=== PATIENT | male | born 1960 | race Caucasian/White ===

== ENCOUNTER → 2019-06-29 06:56 | Outpatient (CLI) | payer OTHER, SELFPAY ==
--- NOTE | 2019-06-29 08:28 | NEURO ---
NCS and/or EMG Patient Report HPI: Patient is a 58-year-old male who presented with complaints of feeling numbness and something balled up under his toes since March. it has progressed to be almost constant feeling. Patient does not complain of back pain or back injury or being diabetic. Right leg seems to be worse than the left leg. Physical Exam: There is slightly decreased sensation to light touch under the big toes on both sides, more on the right than the left. No any other significant sensory deficits or motor weakness noted. Findings: 1. There is evidence of slight slowing of the right common peroneal motor nerve conduction velocity. 2. Rest of the nerve conduction studies are normal. 3. Normal needle examination of the right lower extremity. Impression: 1. 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 2. No any other significant neuropathy noted on examination. Recommendation: Clinical correlation and appropriate work-up is recommended.
== END ==
PROVIDERS: Family Provider Family Medicine; PCP Family Medicine; Referring Provider Family Medicine; Visit Provider Family Medicine
DX: R20.2 Paresthesia of skin (principal)
CPT/HCPCS: 95886; 95909

== ENCOUNTER → 2020-08-09 08:07 | Outpatient (CLI) | payer OTHER, SELFPAY ==
[2020-08-08 13:30] VITALS: BMI 38.1
[2020-08-09 12:27] LABS: Absolute Lymphocyte Count 1.55 X10^3/uL (0.83-4.51); Absolute Neutrophil Count 4.3 X10^3/uL (2.0-7.7); Basophil# 0.05 X10^3/uL; Basophil% 0.8 % (0-1); Eosinophil# 0.11 X10^3/uL; Eosinophils% 1.7 % (0-5); Hematocrit 43.8 % (40-54); Lymphocyte # 1.55 X10^3/ul (4.0); Lymphocyte % 23.7 % (19-41); Mean Corpuscular Hgb 27.7 pg (27.0-32.0); Mean Corpuscular Volume 86.6 fL (80-94); Mean Platelet Vol. 9.8 fl (6.2-12.0); Monocyte# 0.45 X10^3/uL; Monocyte% 6.9 % (0-10); NRBC Flagged by Analyzer 0 % (0-5); Neutrophil # 4.31 X10^3/uL (2.7-7.7); Neutrophil % 65.8 % (47-70); Platelet Count 230 K/mm3 (150-450); RBC Distribution Width CV 12.9 % (11.6-14.6); RBC Distribution Width SD 40.4 fl (35.1-43.9); Red Blood Count 5.06 M/mm3 (4.6-6.2); White Blood Count 6.5 K/mm3 (4.4-11.0)
[2020-08-09 12:44] LABS: ALB/GLOB Ratio 1.1 RATIO (0.9-2.4); AST(SGOT) 11 U/L (15-37); Alanine Aminotransfer ALT/SGPT 32 U/L (16-61); Albumin, Serum 3.9 g/dL (3.2-5.0); Alkaline Phosphatase 75 U/L (45-117); Anion Gap 5 (5-15); BUN 18 mg/dL (7-18); BUN/Creat Ratio 19.2 RATIO (10-20); Calcium,Total 8.7 mg/dL (8.5-10.1); Chloride 103 mmol/L (98-107); Cholesterol 182 mg/dL (200); Creatinine, Serum 0.94 mg/dL (0.70-1.30); EST Glomerular Filtration Rate 87 mL/min (>60); Est Glom Filt Rate - Afr Amer 106 mL/min (>60); Globulin 3.6 g/dL (2.2-4.2); Glucose 98 mg/dL (74-106); High Density Lipoprotein 32 mg/dL; PSA,Total - Annual Screen 2.57 ng/mL (0.00-4.00); Potassium 4.2 mmol/L (3.5-5.1); Protein, Total 7.5 g/dL (6.4-8.2); Sodium Level 137 mmol/L (136-145); Thyroid Stim Hormone (TSH) 1.76 uIU/mL (0.358-3.74); Triglycerides 236 mg/dL; Very Low Density Lipoprotein 47 mg/dL (5-40)
== END ==
PROVIDERS: PCP Internal Medicine; Referring Provider Internal Medicine; Visit Provider Internal Medicine
DX: I10 Essential (primary) hypertension (principal); Z13.220 Encounter for screening for lipoid disorders; Z12.5 Encounter for screening for malignant neoplasm of prostate
CPT/HCPCS: 36415; 80053; 80061; 84153; 84443; 85025; G0103

== ENCOUNTER 2021-08-05 08:04 | Outpatient (CLI) | payer OTHER, SELFPAY ==
[2021-08-05 12:45] LABS: Hemoglobin A1c 5.4 % (3.8-5.6)
[2021-08-05 12:53] LABS: AST(SGOT) 17 U/L (15-37); Alanine Aminotransfer ALT/SGPT 47 U/L (16-61); Albumin, Serum 3.8 g/dL (3.2-5.0); Alkaline Phosphatase 85 U/L (45-117); Anion Gap 11 (5-15); BUN 15 mg/dL (7-18); BUN/Creat Ratio 16.1 RATIO (10-20); Calcium,Total 8.9 mg/dL (8.5-10.1); Chloride 102 mmol/L (98-107); Cholesterol 186 mg/dL (200); Creatinine, Serum 0.93 mg/dL (0.70-1.30); EST Glomerular Filtration Rate 88 mL/min (>60); Est Glom Filt Rate - Afr Amer 106 mL/min (>60); Globulin 3.8 g/dL (2.2-4.2); Glucose 106 mg/dL (74-106); High Density Lipoprotein 31 mg/dL; Potassium 4.1 mmol/L (3.5-5.1); Protein, Total 7.6 g/dL (6.4-8.2); Sodium Level 139 mmol/L (136-145); Triglycerides 256 mg/dL; Very Low Density Lipoprotein 51 mg/dL (5-40)
[2021-08-05 12:55] LABS: Absolute Lymphocyte Count 1.44 X10^3/uL (0.83-4.51); Absolute Neutrophil Count 3.8 X10^3/uL (2.0-7.7); Basophil# 0.04 X10^3/uL; Basophil% 0.7 % (0-1); Eosinophil# 0.15 X10^3/uL; Eosinophils% 2.5 % (0-5); Hematocrit 42.1 % (40-54); Hemoglobin 13.8 g/dL (13.0-16.5); Lymphocyte # 1.44 X10^3/ul (0.83-4.51); Lymphocyte % 24.4 % (19-41); Mean Corp Hgb Conc 32.8 g/dL (32-36); Mean Corpuscular Volume 85.6 fL (80-94); Mean Platelet Vol. 9.4 fl (6.2-12.0); Monocyte# 0.42 X10^3/uL; Monocyte% 7.1 % (0-10); NRBC Flagged by Analyzer 0 % (0-5); Neutrophil % 64.3 % (47-70); Platelet Count 229 K/mm3 (150-450); RBC Distribution Width SD 40.7 fl (35.1-43.9); Red Blood Count 4.92 M/mm3 (4.6-6.2); White Blood Count 5.9 K/mm3 (4.4-11.0)
[2021-08-05 13:10] LABS: Vitamin D,25 Hydroxy 21.5 ng/mL
== END 2021-08-05 23:59 | disposition short-term general hospital (02) ==
LOC: BIMLAB 08:05
PROVIDERS: PCP Internal Medicine; Visit Provider Internal Medicine
DX: I10 Essential (primary) hypertension (principal)
CPT/HCPCS: 36415; 80053; 80061; 82306; 83036; 85025

== ENCOUNTER 2021-10-17 10:11 | Inpatient (IN) | payer OTHER, SELFPAY ==
[2021-10-17] VITALS (14 sets, daily range): BP systolic 163–198; BP diastolic 62–146; PULSE 34–66; RESP 13–18; TEMP 36.1–36.9; O2SAT 94–98; BMI 38.2; BMI 39.0
--- NOTE | 2021-10-17 10:30 | EX.ED.DYSGE1 ---
HPI History of Present Illness Chief Complaint: Shortness of Breath Informant: patient Onset/Context/Timing Onset: Days (10) Context: Gradual Onset Timing: Continuous Quality: Dyspnea with exertion Location: Chest Worsened by: Exertion, laying flat Relieved by: Rest Narrative Narrative: Patient presents with shortness of breath that has been getting worse over the past 10 days. Patient states it came on gradually and has been constant. Patient states it is worse with exertion and with laying flat. Patient states nothing seems to help it. Patient denies any chest pain. Patient denies any palpitations. Patient denies any nausea or vomiting. Patient states he did break out into a sweat at times. Patient admits to subjective chills but denies any fevers. [facility] Medical History Essential hypertension Home Medications krill oil 500 mg capsule PO 06/19/20 [History Last Taken Unknown] tumeric PO 06/19/20 [History Last Taken Unknown] losartan 50 mg tablet 50 mg PO DAILY #90 tab 08/18/21 [Rx Last Taken Unknown] Allergy/AdvReac Type Severity Reaction Status Date / Time No Known Allergies Allergy Verified 10/17/21 10:12 Family History Father Cancer Heart disease Hypertension Mother Diabetes Grandmother Breast cancer Surgical History bilateral shoulder surgery H/O lateral meniscus repair of right knee hernia Social History Smoking Status: Former smoker alcohol intake: current substance use type: does not use ROS ROS ED Constitutional Constitutional ED: Reports chills, subjective and sweats; Denies fever(s) Eyes Eyes: Reports blurry vision; Denies diplopia ENT ENT ED: Denies rhinorrhea or sore throat Cardiovascular Cardiovascular: Denies chest pain or palpitations Respiratory/Chest Respiratory/Chest: Reports dyspnea; Denies cough Gastrointestinal Gastrointestinal: Denies nausea or vomiting Genitourinary Genitourinary ED: Denies dysuria or hematuria Musculoskeletal Musculoskeletal: Denies back pain or neck pain Integumentary Denies abscess or rash Neurologic Neurologic: Denies headache(s) or weakness Allergic/Immunologic Allergic/Immunologic ED: Denies mouth swelling or urticaria EXAM Physical Exam Const Vital Signs: 10/17/21 10:12 10/17/21 10:31 10/17/21 10:42 Temperature 98.0 F Temperature Source Temporal Pulse Rate 36 L Respiratory Rate 17 Respiratory Effort Short of Breath Respiratory Pattern Tachypnea Blood Pressure 163/87 H Blood Pressure Mean 112 Pulse Ox 97 Oxygen Delivery Method Room Air Nasal Cannula Nasal Cannula Oxygen Flow Rate (L/min) 2 2 10/17/21 11:14 Temperature Temperature Source Pulse Rate 38 L Respiratory Rate 18 Respiratory Effort Respiratory Pattern Blood Pressure 198/62 H Blood Pressure Mean 107 Pulse Ox 95 Oxygen Delivery Method Nasal Cannula Oxygen Flow Rate (L/min) 2 Positive well nourished, well developed and obese General Appearance ED: well developed and NAD Nutritional Appearance: obese HEENT Reports moist mucous membranes Neck supple and no JVD Chest Wall inspection of chest normal and palpation of chest normal Resp normal respiratory effort and clear to auscultation bilaterally Cardio regular rhythm Rate: bradycardia GI normal to inspection, nondistended, normoactive bowel sounds and non-tender Palpation: soft Extremity normal to inspection General Extremety ED: Negative for edema or tenderness General Extremity: Negative for edema Neuro oriented x3, CN's II-XII intact bilaterally and no sensory deficits noted Sensorium / Orientation: alert Motor Exam: strength 5/5 throughout Psych mental status grossly normal Skin no rashes or lesions noted MDM MDM MDM Narrative Medical decision making narrative: EKG was obtained. On my interpretation, there is complete heart block with a rate of 38. QRS interval was slightly prolonged at 140. [place] was normal. There are no acute ST or T wave changes. CBC was within normal limits. PT with INR PTT were normal. Basic metabolic profile was essentially within normal limits. High-sensitivity troponin was 10. Portable 1 view chest x-ray was obtained. On my interpretation, lung jay are clear. There is normal cardiac silhouette. Bony thorax is normal. There is no acute process noted. Radiologist also interpreted the x-ray and agrees. Case was discussed with Dr. Valle from cardiology. He was in to evaluate the patient. He will obtain a stat echocardiogram here in the emergency department. He recommended admitting the patient to the hospitalist to the ICU and will plan on placing a pacemaker today. Patient and family understood and were agreeable with the plan. All questions were answered. Lab Data Attestation: I reviewed the patient's lab results. Labs: Laboratory Results - last 24 hr 10/17/21 10/17/21 10/17/21 10:29 10:29 10:29 WBC 8.2 RBC 4.65 Hgb 13.5 Hct 39.6 L MCV 85.2 MCH 29.0 MCHC 34.1 RDW Std Deviation 41.2 RDW Coeff of Brenda 13.3 Plt Count 252 MPV 9.4 Immature Gran % (Auto) 1.000 H Neut % (Auto) 68.2 Lymph % (Auto) 20.1 [place] % (Auto) 7.9 Eos % (Auto) 2.1 Baso % (Auto) 0.7 Absolute Neuts (auto) 5.6 Absolute Lymphs (auto) 1.66 Nucleated RBC % 0 PT 13.0 INR 1.0 APTT 28.2 Sodium 138 Potassium 4.6 Chloride 107 Carbon Dioxide 28.0 Anion Gap 3 L BUN 20 H Creatinine 1.08 Estim Creat Clear Calc 82.20 Est GFR (MDRD) Af Amer 89 Est GFR (MDRD) Non-Af 74 BUN/Creatinine Ratio 18.5 Glucose 106 Calcium 8.7 Troponin I High Sens 10 Radiography Chest X-Ray - ED: 1 View, Read by ED Physician, Read by Radiologist and No Acute Disease Diagnostic Testing: Clinical Impression(s) from Imaging Studies Chest X-Ray 10/17/21 10:51 IMPRESSION: Mild increased markings at the lung bases suggestive of bibasilar atelectasis and/or early infiltrate slightly worse on the right side. Electronically Signed: Calos Bajwa MD at 11:21 EDT , EKG Initial EKG: Attestation: I personally reviewed and interpreted this EKG as follows: Interpretation: No Acute Injury Pattern and AV Block (Third-degree AV block) Prior EKG tracings: available for review Prior: Changed (The third-degree heart block is new compared to previous EKG dated 11/02/2016.) Critical Care Time Critical Care Time: Yes Critical care time (excluding procedures): 30-74 minutes (33), Including time spent:, Discussing w/Patient &/or Family/Plastic Panel Installer, Discussing w/Consultants, Arranging Admission or Transfer and Performing Direct Patient Care at Bedside Discharge Plan Dx/Rx/DC Orders Clinical Impression: Complete heart block Disposition Disposition: Acute Care [facility]
--- NOTE | 2021-10-17 10:35 | EKG12_ITS ---
Test Reason : SOB Blood Pressure : / mmHG Vent. Rate : 038 BPM Atrial Rate : 040 BPM P-R Int : 000 ms QRS Dur : 140 ms QT Int : 538 ms P-R-T Axes : 036 063 054 degrees QTc Int : 427 ms Marked sinus bradycardia with A-V dissociation and Idioventricular rhythm with Premature ventricular complexes or Fusion complexes ; 3rd Degree Heart Block Left bundle branch block Abnormal ECG Confirmed by SHAHRZAD RAMIREZ, DANIEL ([id number]), desk editor BRANDI VIDAL ([id number]) on 10/21/2021 11:01:59 AM Referred By: ANTHONY/EMMY Confirmed By:DANIEL MARKHAM MD
[2021-10-17] MEDS: Aspirin 81 MG TAB.CHEW 324 MG PO (10:44)
[2021-10-17 10:51] LABS: Absolute Lymphocyte Count 1.66 X10^3/uL (0.83-4.51); Absolute Neutrophil Count 5.6 X10^3/uL (2.0-7.7); Basophil# 0.06 X10^3/uL; Basophil% 0.7 % (0-1); Eosinophil# 0.17 X10^3/uL; Eosinophils% 2.1 % (0-5); Hematocrit 39.6 % (40-54); Hemoglobin 13.5 g/dL (13.0-16.5); Lymphocyte # 1.66 X10^3/ul (0.83-4.51); Lymphocyte % 20.1 % (19-41); Mean Corp Hgb Conc 34.1 g/dL (32-36); Mean Corpuscular Volume 85.2 fL (80-94); Mean Platelet Vol. 9.4 fl (6.2-12.0); Monocyte# 0.65 X10^3/uL; Monocyte% 7.9 % (0-10); NRBC Flagged by Analyzer 0 % (0-5); Neutrophil # 5.62 X10^3/uL (2.7-7.7); Neutrophil % 68.2 % (47-70); Platelet Count 252 K/mm3 (150-450); RBC Distribution Width CV 13.3 % (11.6-14.6); RBC Distribution Width SD 41.2 fl (35.1-43.9); Red Blood Count 4.65 M/mm3 (4.6-6.2); White Blood Count 8.2 K/mm3 (4.4-11.0)
--- NOTE | 2021-10-17 10:51 | RAD_ITS ---
STUDY: X-RAY CHEST REASON FOR EXAM: Male, 60 years old. 10 day history of increasing shortness of breath and insomnia. TECHNIQUE: Single AP portable view of the chest. COMPARISON: None. FINDINGS: EKG electrodes are seen. Mild increased markings at the lung bases suggestive of either atelectasis and/or early bibasilar infiltrates slightly more prominent on the right side. There is no demonstrated pleural abnormality. Normal size heart. Normal mediastinum and brenda. Normal visualized pulmonary arteries. Normal visualized aortic arch and descending thoracic aorta. Normal visualized thoracic spine. Normal visualized ribs, clavicles, and shoulders. There is no demonstrated abnormality of the visualized soft tissue structures of the upper abdomen. RAD/Chest 1 View (Portable) IMPRESSION: Mild increased markings at the lung bases suggestive of bibasilar atelectasis and/or early infiltrate slightly worse on the right side. Electronically Signed: Calos Bajwa MD at 11:21 EDT ,
[2021-10-17 11:04] LABS: Partial Thromboplast Time 28.2 Seconds (24.1-36.2)
[2021-10-17 11:10] LABS: Anion Gap 3 (5-15); BUN 20 mg/dL (7-18); BUN/Creat Ratio 18.5 RATIO (10-20); Calcium,Total 8.7 mg/dL (8.5-10.1); Chloride 107 mmol/L (98-107); Creatinine, Serum 1.08 mg/dL (0.70-1.30); EST Glomerular Filtration Rate 74 mL/min (>60); Est Glom Filt Rate - Afr Amer 89 mL/min (>60); Glucose 106 mg/dL (74-106); Potassium 4.6 mmol/L (3.5-5.1); Sodium Level 138 mmol/L (136-145); Troponin-I HS 10 pg/mL (3.0-78.0)
--- NOTE | 2021-10-17 11:30 | ECHOCS_ITS ---
Reason For Study: Arrhythmia, complete heart block Procedure This was a 2D Doppler, Color Flow transthoracic echocardiogram. The study was technically difficult. Exam performed portable in ED. Left Ventricle Normal LV size. Left ventricular systolic function is normal. The estimated ejection fraction is 55 %. Stage 2 diastolic dysfunction. No regional wall motion abnormalities noted. Right Ventricle Normal RV size. Normal systolic function. Atria Normal left atrium. Normal right atrium. Mitral Valve Normal mitral valve. Tricuspid Valve Normal tricuspid valve. Mild to moderate (1-2+) tricuspid valve insufficiency. Pulmonary artery systolic pressure is 44 mmHg. Aortic Valve Trisinus/trileaflet aortic valve. Pulmonic Valve Normal pulmonic valve. Great Vessels Normal aortic root. The pulmonary artery is normal size. Normal inferior vena cava. Pericardium/Pleural No pericardial effusion. Medication Diluted definity 4ml given slow IV push to enhance endocardial definition. MMode/2D Measurements & Calculations LVIDd: 5.0 cm IVSd: 1.1 cm Ao root diam: 3.6 cm LVIDs: 2.9 cm LVPWd: 1.1 cm FS: 42.4 % LAV(MOD-bp): 56.6 ml LVAd ap4: 48.7 cm2 LVAd ap2: 51.0 cm2 LAV(MOD-bp) Indexed: 22.5 ml/m2 LVLd ap4: 10.2 cm LVLd ap2: 10.5 cm LAV(MOD-sp2): 62.5 ml EDV(MOD-sp4): 192.0 ml EDV(MOD-sp2): 203.0 ml LAV(MOD-sp4): 46.0 ml EDV(sp4-el): 197.6 ml EDV(sp2-el): 210.2 ml LVAs ap4: 25.7 cm2 LVAs ap2: 24.7 cm2 LVLs ap4: 8.3 cm LVLs ap2: 8.5 cm ESV(MOD-sp4): 65.5 ml ESV(MOD-sp2): 59.1 ml ESV(sp4-el): 67.5 ml ESV(sp2-el): 61.1 ml EF(MOD-sp4): 65.9 % EF(MOD-sp2): 70.9 % EF(sp4-el): 65.8 % SV(MOD-sp4): 126.4 ml SV(MOD-sp2): 144.0 ml SV(sp4-el): 130.1 ml LA A4 area: 17.4 cm2 LA dimension(2D): 4.7 cm RA A4 area: 18.3 cm2 Doppler Measurements & Calculations MV E max cole: 130.6 cm/sec Lat Peak E' Cole: 19.3 cm/sec Med Peak E' Cole: 10.6 cm/sec MV A max cole: 93.7 cm/sec E/E' lat: 6.8 E/E' med: 12.3 MV E/A: 1.4 Ao V2 max: 166.5 cm/sec LV V1 max: 128.6 cm/sec PA V2 max: 139.8 cm/sec Ao max P.1 mmHg LV V1 max P.6 mmHg TR max cole: 313.7 cm/sec TR max P.4 mmHg ECHO/Echo Complete W/ Contrast Interpretation Summary Normal LV size. Left ventricular systolic function is normal. The estimated ejection fraction is 55 %. Stage 2 diastolic dysfunction. Pulmonary artery systolic pressure is 44 mmHg. Contrast injection was performed. Ordering Physician: Dio Saucedo Referring Physician: Anne Blackman M.D. Performed By: Sofy Vargas, LEXI, RVT
--- NOTE | 2021-10-17 11:34 | PCM.HP.STD ---
HPI - General General Date of Admission: 10/17/21 Date of Service: 10/17/21 Chief Complaint: Dyspnea, worse with exertion x 10 days HPI Narrative The patient is a 60 y/o M w/ PMHx: HTN, Obesity, Former tobacco use who presents to the [facility] ED on 10/17/21 with history of onset dyspnea, worse with any exertion including any activity in his own home with PCP office evaluation with noted bradycardia on EKG with no prior history prompting them to refer patient to the ED for evaluation. Patient without any chest pain or lightheadedness or dizziness. Work-up in the ED included T 98.7, heart rate 40, BP 176/72, respiratory rate 17, 97% on room air with most recent vital signs heart rate 38, BP 198/62, CBC with WBC 8.2, hemoglobin 13.5, platelet 250 with mild, unremarkable coags, no marked appearing BMP, CXR w/ mild increased markings at the lung bases suggestive of bibasilar atelectasis and/or early infiltrate slightly worse on the right side, EKG w/ concern for complete heart block with a heart rate of 38. ED physician did discuss case with cardiology Dr. Valle with plan stat echocardiogram in the emergency room w/ normal LV size, normal LV systolic function, EF 55%, stage II diastolic dysfunction, PASP 45 mmHg with planned pacemaker placement. In the ED patient administered ASA 324 mg po x 1. PFSH Medical History (Updated 10/17/21 @ 18:[address] Wendy Springer MD) Complete heart block Essential hypertension Former tobacco use Obesity Home Medications krill oil 500 mg capsule PO 06/19/20 [History Last Taken Unknown] tumeric PO 06/19/20 [History Last Taken Unknown] losartan 50 mg tablet 50 mg PO DAILY #90 tab 08/18/21 [Rx Last Taken Unknown] Allergy/AdvReac Type Severity Reaction Status Date / Time No Known Allergies Allergy Verified 10/17/21 10:12 Family History (Updated 10/17/21 @ 18:[address] Wendy Springer MD) Father Cancer Heart disease Hypertension Mother Diabetes Heart disease Grandmother Breast cancer Surgical History (Updated 10/17/21 @ 18:[address] Wendy Springer MD) bilateral shoulder surgery H/O lateral meniscus repair of right knee History of herniorrhaphy History of permanent cardiac pacemaker placement (10/17/21) Social History (Updated 10/17/21 @ 18:[address] Wendy Springer MD) household members: spouse Smoking Status: Former smoker how long ago did patient quit smoking: Quit cigarette tobacco 1997, prior 1 ppd since teenager. alcohol intake: current alcohol intake frequency: a few times a week substance use type: does not use ROS ROS Narrative Admission Review of Systems: CONSTITUTIONAL: No weight loss, fever, chills, + weakness or fatigue. HEENT: Eyes: No visual loss, blurred vision, double vision or yellow sclerae. Ears, Nose, Throat: No hearing loss, sneezing, congestion, runny nose or sore throat. SKIN: No rash or itching, lesions, wounds. CARDIOVASCULAR: No chest pain, chest pressure or chest discomfort, palpitations, edema, orthopnea, syncopal events. RESPIRATORY: + Shortness of breath worse with exertion, No cough or sputum, wheezing, hemoptysis. GASTROINTESTINAL: No anorexia, nausea, vomiting or diarrhea, abdominal pain, melena, BRBPR. GENITOURINARY: No dysuria, frequency, urgency or retention. NEUROLOGICAL: No headache, dizziness, syncope, paralysis, ataxia, numbness or tingling in the extremities, focal weakness, change in bowel or bladder control, seizure. MUSCULOSKELETAL: No muscle, back pain, joint pain or stiffness. HEMATOLOGIC: No anemia, bleeding or bruising. LYMPHATICS: No enlarged nodes. No history of splenectomy. PSYCHIATRIC: No history of depression or anxiety. ENDOCRINOLOGIC: No reports of sweating, cold or heat intolerance. No polyuria or polydipsia. ALLERGIES: No history of asthma, hives, eczema or rhinitis. Vital Signs Vital Signs Vital Signs: 10/17/21 10:12 10/17/21 10:31 10/17/21 10:42 Temperature 98.0 F Temperature Source Temporal Pulse Rate 36 L Respiratory Rate 17 Respiratory Effort Short of Breath Respiratory Pattern Tachypnea Blood Pressure 163/87 H Blood Pressure Mean 112 Pulse Ox 97 Oxygen Delivery Method Room Air Nasal Cannula Nasal Cannula Oxygen Flow Rate (L/min) 2 2 10/17/21 11:14 Temperature Temperature Source Pulse Rate 38 L Respiratory Rate 18 Respiratory Effort Respiratory Pattern Blood Pressure 198/62 H Blood Pressure Mean 107 Pulse Ox 95 Oxygen Delivery Method Nasal Cannula Oxygen Flow Rate (L/min) 2 Weight Weight: 289 lb 14.526 oz Body Mass Index (BMI) 38.2 Physical Exam Narrative Physical Examination: General: Awake, alert, oriented x 3 and cooperative, seated upright in ED bed in no apparent distress. Skin: Normal color, normal turgor, no icterus, no cyanosis. HEENT: AT/NC, EOMI, PERRLA, MMM, no carotid bruits or JVD noted; however, thickened neck makes examination difficult. Lungs: Diminished, distant, appropriate effort, no rales, ronchi or wheezing. Heart: Bradycardic; no gallop, rub audible. Abdomen: Soft, obese, NTTP, ND, normal BS, no HSM. Extremities: No cyanosis, clubbing, or edema. Neurological: Patient awake, alert, oriented as noted, cognitive function intact; pupils equally reactive to light and accommodation, cranial nerves II-XII grossly normal, moving all 4 extremities, no focal deficits, strength moderately global decrease secondary to acute presentation. Psychiatric: Affect appears fatigued otherwise normal, no acute evidence of depressive or anxiety feelings. Results Lab / Micro Data Result Diagrams: 10/17/21 10:10/17/21 10:29 Labs: Laboratory Results - last 24 hr 10/17/21 10:29: WBC 8.2, RBC 4.65, Hgb 13.5, Hct 39.6 L, MCV 85.2, MCH 29.0, MCHC 34.1, RDW Std Deviation 41.2, RDW Coeff of Brenda 13.3, Plt Count 252, MPV 9.4, Immature Gran % (Auto) 1.000 H, Neut % (Auto) 68.2, Lymph % (Auto) 20.1, [place] % (Auto) 7.9, Eos % (Auto) 2.1, Baso % (Auto) 0.7, Absolute Neuts (auto) 5.6, Absolute Lymphs (auto) 1.66, Nucleated RBC % 0 10/17/21 10:: PT 13.0, INR 1.0, APTT 28.2 10/17/21 10:29: Sodium 138, Potassium 4.6, Chloride 107, Carbon Dioxide 28.0, Anion Gap 3 L, BUN 20 H, Creatinine 1.08, Estim Creat Clear Calc 82.20, Est GFR (MDRD) Af Amer 89, Est GFR (MDRD) Non-Af 74, BUN/Creatinine Ratio 18.5, Glucose 106, Calcium 8.7, Troponin I High Sens 10 Radiology Impression Chest X-Ray 10/17/21 10:51 IMPRESSION: Mild increased markings at the lung bases suggestive of bibasilar atelectasis and/or early infiltrate slightly worse on the right side. Electronically Signed: Calos Bajwa MD at 11:21 EDT , Assessment & Plan Assessment/Plan (1) Complete heart block: PLAN: The patient is a 60 y/o M w/ PMHx: HTN, Obesity, Former tobacco use who presents to the [facility] ED on 10/17/21 with history of onset dyspnea, worse with any exertion including any activity in his own home with PCP office evaluation with noted bradycardia on EKG with no prior history prompting them to refer patient to the ED for evaluation. #1. Exertional dyspnea secondary to acute intermittent complete heart block: Unclear etiology for onset of incomplete heart block with no medications which the patient is on which could be responsible and no history of any coronary disease but some concern for cardiology for possible sarcoidosis versus Lyme disease w/ pending Lyme IgG w/ Blot interp/IgM Ab. From discussions with cardiology plan to transition from the ED to the cardiac catheterization lab with placement of permanent pacemaker, following if no concerning events we will plan transition to the PCU, maintain on monitor, cycle cardiac enzymes to be cautious, TSH requested, magnesium requested, plan repeat EKG in a.m., plan repeat assessment per pacer nurse 10/18/2021 and per discussion with cardiology if no concerning events would plan potential discharge to home in a.m. #2. Hypertension, uncontrolled: Patient notes that his blood pressures only been up ever since onset of his exertional dyspnea, maintain on monitor with continued elevations therefore will titrate up patient losartan and continue to monitor with further additions as needed, as needed IV hydralazine as well #3. Former tobacco use: Encourage continued tobacco cessation. #4. Obesity: Weight loss and lifestyle changes encouraged. #5. DVT prophylaxis: SCDs, hold chemoprophylaxis given planned pacemaker placement. Charges/Coding Visit Charges Inpatient E&M: 09735 Init Hosp L3
[2021-10-17 13:22] LABS: Magnesium 2.4 mg/dL (1.6-2.6); Thyroid Stim Hormone (TSH) 1.74 uIU/mL (0.358-3.74); Troponin-I HS 11 pg/mL (3.0-78.0)
--- NOTE | 2021-10-17 15:57 | CL.IE_ITS ---
Patient: MYRIAM AGUIRRE Study Date: 10/17/2021 Performing: Mikie Mendez MD : 1960 Age: 60 Gender: male PROCEDURES PERFORMED LP04-([id number])INITIAL PACER INSERT+DUAL LEADS INDICATIONS Complete heart block PROCEDURE DETAILS The patient was brought to the Catheterization Lab in the postabsorptive nonsedated state. Infor med consent was obtained prior to the procedure. Local anesthetic was given subcutaneously to the le ft upper chest area with Lidocaine 2%. Access was achieved and a guidewire was advanced into the left subclavian vein. PPM ventricular lead was inserted / positioned to right ventricular apex. PPM ventr icular lead testing performed. PPM ventricular lead testing performed. PPM atrial lead was inserted / positioned to the right atrial appendage. PPM atrial lead testing performed. The Atrial lead sutured in place with 2-0 Silk. The Ventricular PM lead sutured in place with 2-0 Silk. PPM generator was at tached to the lead(s) and inserted into the pocket. Device pocket was irrigated with antibiotic Ancef . Subcutaneous closure was completed with 3-0 Vicryl. Skin closure was completed with 4-0 Vicryl. Sam ri-strips applied to Lt chest area. The patient tolerated the procedure well. Estimated Blood Loss: < 10 mls IMPLANTED / EX-PLANTED DEVICES IMPLANTED DEVICE(S): PPM Ventricular lead - Pick Up Man: Sproom, Model # Ingevity 7842 , Serial # [id number] PPM Atrial lead - Pick Up Man: [place] [employer], Model # Ingevity 7841 , Serial # [id number] PPM Generator - Pick Up Man: Sproom, Model # [employer] L111 , Serial # [id number] DEVICE PARAMETERS ATRIAL LEAD PARAMETERS: P wave- 2.2 (mV) Current- 1.1 (mA) threshold- 0.6 (V) impedence- 546 (OHMS) VENTRICULAR LEAD PARAMETERS: R wave- 22.0 (mV) Current- 0.6 (mA) threshold- 0.4 (V) impedence- 742 (OHMS) DEVICE PARAMETERS: Mode- DDD Lower rate- 60 Upper rate- 150 CONCLUSIONS / RECOMMENDATIONS Device Conclusions: Successful implantation of a dual chamber pacemaker Device Recommendations: Follow up with Primary Care Physician PROCEDURE MEDICATIONS Fentanyl 50 mcg IV Versed 1 mg IV Versed 1 mg IV Fentanyl 50 mcg IV Versed 1 mg IV Fentanyl 25 mcg IV Oxygen: 2 L/min via nasal cannula Oxygen: 3 L/min via nasal cannula Antibiotic given in appropriate timeframe. Ancef 2 Gm IV @ 10/17/2021 13:51:04 Signed By Mikie Mendez MD On 10/17/2021 15:56:05 Mikie Mendez MD
--- NOTE | 2021-10-17 16:17 | CON.PCM.CA_ITS ---
Assessment & Plan Assessment/Plan (1) Complete heart block: PLAN: Intermittent complete heart block. The etiology of the above is not entirely clear to me. He does not appear to have coronary disease. At this point in time we will have to proceed with a permanent pacemaker implantation. He should be evaluated for sarcoid as well as Lyme disease at some point. * I did explain to him the risk benefits and alternatives and he understands and agrees to proceed. (2) Essential hypertension: PLAN: His blood pressure is not under very good control at this particular time. His losartan will be resumed and titrated up as appropriate. Thank you for allowing me to participate in the care of your patient. Please don't hesitate to call if any issues arise. HPI Consult Data Date of Consult: 10/17/21 HPI Narrative HPI Narrative: MYRIAM AGUIRRE, is a 60 M who presents to the [facility] ED on 10/17/21 with history of onset dyspnea, worse with any exertion including any activity in his own home with PCP office evaluation with noted bradycardia on EKG with no prior history prompting them to refer patient to the ED for evaluation. Patient without any chest pain or lightheadedness or dizziness. Patient was recently in [place] and returned. He denies any chest pain is had no presyncopal episodes, and he cannot remember being bitten by any ticks. He has had no neck arm or jaw discomfort to suggest angina. In the emergency room he was noted to be in an AV dissociated rhythm with a heart rate of 38 bpm. I was called by my colleagues about possibly putting in a permanent pacemaker. [facility] Medical History Complete heart block Essential hypertension Home Medications krill oil 500 mg capsule PO 06/19/20 [History Last Taken Unknown] tumeric PO 06/19/20 [History Last Taken Unknown] losartan 50 mg tablet 50 mg PO DAILY #90 tab 08/18/21 [Rx Last Taken Unknown] Allergy/AdvReac Type Severity Reaction Status Date / Time No Known Allergies Allergy Verified 10/17/21 10:12 Family History Father Cancer Heart disease Hypertension Mother Diabetes Grandmother Breast cancer Surgical History bilateral shoulder surgery H/O lateral meniscus repair of right knee History of herniorrhaphy History of permanent cardiac pacemaker placement (10/17/21) Social History Smoking Status: Former smoker alcohol intake: current substance use type: does not use ROS Constitutional Constitutional: Denies fever(s) or weight loss Eyes Eyes: Reports systems reviewed and no addt'l complaints, except as documented ENT HEENT: Reports systems reviewed and no addt'l complaints, except as documented Cardiovascular Cardiovascular: Denies chest pain at rest, chest pain with activity, dyspnea at rest, dyspnea on exertion, edema, palpitations or paroxysmal nocturnal dyspnea Respiratory/Chest Respiratory/Chest: Denies dyspnea on exertion, productive cough, shortness of breath at rest or shortness of breath with exertion Gastrointestinal Gastrointestinal: Denies change in bowel habits, nausea, vomiting or weight changes Genitourinary Genitourinary: Denies difficulty urinating Musculoskeletal Musculoskeletal: Denies joint stiffness or muscle weakness Integumentary Integumentary: Denies lesions Neurologic Neurologic: Denies dizziness or syncope Psychiatric Psychiatric: Denies anxiety Endocrine Endocrinology: Denies excessive sweating or fatigue Hematologic/Lymphatic Hematologic/Lymphatic: Denies anemia Allergic/Immunologic Allergic/Immunologic: Denies seasonal rhinorrhea Physical Exam Const alert, oriented x3 and no apparent distress General Appearance: cooperative HEENT hearing grossly normal bilaterally Head and Scalp: atraumatic Eyes EOMs intact bilaterally Neck General: normal visual inspection Chest inspection of chest normal and palpation of chest normal Resp normal respiratory effort Auscultation: clear to auscultation bilaterally Cardio regular rate, regular rhythm, S1 normal heart sound and S2 normal heart sound Jugular Venous Distention: JVD GI normal to inspection, nondistended, normoactive bowel sounds Extremity normal capillary refill and no pedal edema Peripheral Pulses: Yes pulses 2+ throughout and femoral pulses present Skin no rashes or lesions noted Neuro oriented x3 and CN's II-XII intact bilaterally Psych Appearance: grossly normal and appropriate Risk Stratification Risk Stratification Applicable: No Objective Data Vital Signs: Vital Signs Temp Pulse Resp BP Pulse Ox 98.1 F 34 L 13 189/64 H 98 10/17/21 11:45 10/17/21 13:06 10/17/21 13:06 10/17/21 13:06 10/17/21 13:06 Oxygen Flow Rate (L/min) 2 Oxygen Delivery Method Nasal Cannula Weight: 289 lb 14.526 oz Body Mass Index (BMI) 38.2 Lab / Micro Data Result Diagrams: 10/17/21 10:29 10/17/21 10:29 Labs: Laboratory Results - last 24 hr 10/17/21 10:29: WBC 8.2, RBC 4.65, Hgb 13.5, Hct 39.6 L, MCV 85.2, MCH 29.0, MCHC 34.1, RDW Std Deviation 41.2, RDW Coeff of Brenda 13.3, Plt Count 252, MPV 9.4, Immature Gran % (Auto) 1.000 H, Neut % (Auto) 68.2, Lymph % (Auto) 20.1, Sabine % (Auto) 7.9, Eos % (Auto) 2.1, Baso % (Auto) 0.7, Absolute Neuts (auto) 5.6, Absolute Lymphs (auto) 1.66, Nucleated RBC % 0 10/17/21 10:29: PT 13.0, INR 1.0, APTT 28.2 10/17/21 10:29: Sodium 138, Potassium 4.6, Chloride 107, Carbon Dioxide 28.0, Anion Gap 3 L, BUN 20 H, Creatinine 1.08, Estim Creat Clear Calc 82.20, Est GFR (MDRD) Af Amer 89, Est GFR (MDRD) Non-Af 74, BUN/Creatinine Ratio 18.5, Glucose 106, Calcium 8.7, Troponin I High Sens 10 10/17/21 12:51: Magnesium 2.4, Troponin I High Sens 11, TSH 1.74 Cardiology Labs/Tests 10/17/21 10:29: WBC 8.2, RBC 4.65, Hgb 13.5, Hct 39.6 L, MCV 85.2, MCH 29.0, MCHC 34.1, Plt Count 252, MPV 9.4, Immature Gran % (Auto) 1.000 H, Neut % (Auto) 68.2, Lymph % (Auto) 20.1, Sabine % (Auto) 7.9, Eos % (Auto) 2.1, Baso % (Auto) 0.7, Absolute Neuts (auto) 5.6, Nucleated RBC % 0 10/17/21 10:29: PT 13.0, INR 1.0, APTT 28.2 10/17/21 10:29: Sodium 138, Potassium 4.6, Chloride 107, Carbon Dioxide 28.0, Anion Gap 3 L, BUN 20 H, Creatinine 1.08, Est GFR (MDRD) Af Amer 89, Est GFR (MDRD) Non-Af 74, BUN/Creatinine Ratio 18.5, Glucose 106, Calcium 8.7 10/17/21 12:51: Magnesium 2.4 Rhythm: EKG: ECHO: Stress Test: Cardiac Cath: PCI: CT Surgery: Holter monitor: EPS: PPM: CXR: Chest CT Scan: Radiography Diagnostic Testing: Radiology Impression Chest X-Ray 10/17/21 10:51 IMPRESSION: Mild increased markings at the lung bases suggestive of bibasilar atelectasis and/or early infiltrate slightly worse on the right side. Electronically Signed: Calos Bajwa MD at 11:21 EDT , Echocardiogram 10/17/21 11:30 Interpretation Summary Normal LV size. Left ventricular systolic function is normal. The estimated ejection fraction is 55 %. Stage 2 diastolic dysfunction. Pulmonary artery systolic pressure is 44 mmHg. Contrast injection was performed. Ordering Physician: Dio Saucedo Referring Physician: Anne Blackman M.D. Performed By: Sofy Vargas, LEXI, RVT
--- NOTE | 2021-10-17 16:22 | PCM.DC ---
Documented by User: Dr. Mikie Mendez MD 10/17/21 16:23 Discharge Instructions Diet Discharge Diet: No restrictions (as you feel able. No excessive stretching. No lifting your arm over your head (keep elbow below shoulder level) until seen for your pacemaker check. Do not lift your elbow away from your side until you are seen for your first visit. Keep the arm sling on if it helps remind you not to lift your arm.) Activity May shower in (days): 3 Additional Activity Instructions:: Do not lift the left arm above the shoulder Dressing / Incision Call your doctor if your incision/area has: Continuous Slow Oozing, Sudden Increased Bleeding, Increased Pain/ Swelling, Increased Redness, Foul Smelling Discharge and Swelling at the incision site Call your doctor if you observe: Fever of 101 or Higher, Shortness of breath, Dizziness, Fainting spells, Swelling in the ankles, Chest pain, Prolonged hiccupping and Increased palpitations (irregular heartbeat) Additional Dressing/Incision Instructions:: When dressing is removed, wash and dry incision. Keep covered with a light bandage if it is rubbing against your clothing. Do not cover the incision with an airtight bandage. Change the bandage daily. Do not remove steri strips. The strips will fall off on their own. Follow Up Care Please Follow Up With: Mikie Mendez MD When: Call [phone] for follow up. Pacemaker follow-up October 28 at 11 AM Test Results: Test results from this visit will be discussed in further detail at your follow-up appointment, if applicable. Discharge Plan Admission Admit Date/Time: 10/17/21 11:39 Primary Reason for Your Visit: Intermittent complete heart block, Uncontrolled HTN Attending Provider: Wendy Springer Primary Care Provider: Anne Blackman Instructions Patient Instructions: Taking a Diuretic, Taking DAV Inhibitors, Low-Salt Choices, Low Salt Diet Dc, Hypertension Dc, Living with a Pacemaker Discharge Orders/Prescriptions Prescriptions: New losartan-hydrochlorothiazide 100-12.5 mg tablet 1 tab PO DAILY 30 Days Qty: 30 RF: 0 Continued tumeric PO RF: 0 krill oil 500 mg capsule PO RF: 0 Discontinued losartan 50 mg tablet 50 mg PO DAILY Qty: 90 RF: 1 Referrals / Follow Up: Mikie Mendez MD [STAFF PHYSICIAN] - (Pacemaker follow-up October 28.) Anne Blackman MD [Primary Care Provider] - (Follow-up within 3-5 days to review admission and have repeat BP check given medication changes as well as follow-up basic metabolic panel.) Disposition Disposition (needs filled in before D/C Order can be placed): Home, Self Care Documented by User: Dr. Wendy Springer MD 10/18/21 10:08 Discharge Instructions Diet Discharge Diet: Low fat / Low cholesterol Activity Discharge Activity: - (Activity restrictions per Cardiology as noted.) May resume sexual activity in: - (Activity restrictions per Cardiology as noted.) Dressing / Incision Call your doctor if your incision/area has: Continuous Slow Oozing, Sudden Increased Bleeding, Increased Pain/ Swelling, Increased Redness, Foul Smelling Discharge and Swelling at the incision site Call your doctor if you observe: Fever of 101 or Higher, Change in Color, Inability to urinate, Dizziness, Chest pain, Increased palpitations (irregular heartbeat), Calf discomfort and Uncontrolled pain Discharge Plan Admission Admit Date/Time: 10/17/21 11:39 Primary Reason for Your Visit: Intermittent complete heart block, Uncontrolled HTN Attending Provider: Wendy Springer Primary Care Provider: Anne Blackman Instructions Patient Instructions: Taking a Diuretic, Taking DAV Inhibitors, Low-Salt Choices, Low Salt Diet Dc, Hypertension Dc, Living with a Pacemaker Discharge Orders/Prescriptions Prescriptions: New losartan-hydrochlorothiazide 100-12.5 mg tablet 1 tab PO DAILY 30 Days Qty: 30 RF: 0 Continued tumeric PO RF: 0 krill oil 500 mg capsule PO RF: 0 Discontinued losartan 50 mg tablet 50 mg PO DAILY Qty: 90 RF: 1 Referrals / Follow Up: Mikie Mendez MD [STAFF PHYSICIAN] - (Pacemaker follow-up October 28.) Anne Blackman MD [Primary Care Provider] - (Follow-up within 3-5 days to review admission and have repeat BP check given medication changes as well as follow-up basic metabolic panel.) Disposition Disposition (needs filled in before D/C Order can be placed): Home, Self Care
--- NOTE | 2021-10-17 17:15 | CASEMGMT ---
RN CM MONOTYPE SETTER CM to room to meet with patient for initial transition planning/care coordination assessment. RN EVGENY introduced self and role at [facility].? Pt voices understanding and consents to assessment at this time.? Pt resting in bed in no distress at this time.? Pt is A/O at this time and answers all questions appropriately.?? Care providers, pharmacy, and demographics verified/updated at this time. PCP: Dr Blackman Specialists: none Preferred Pharmacy: [facility] Retail Insurance: MMO Prescription Benefit:? yes Living Will/HPOA:? Has completed both LW and HPOA, who is his , Luis A LNOK: , Luis A Living Arrangements: Lives w/ in one-story home w/basement. 2 steps to enter home. Independent. /pt share home tasks. Transportation: Pt states drives self and states no transportation concerns at this time.? also drives DME: ? Denies using any DME and denies needs.? HHC/SNF: No hx of either. No needs identified. Pt wishes to return home and states has no concerns with going home at time of discharge.? Pt states does not smoke. ETOH: He states drinks beer or mixed drinks 2-3 x's/ week. CM to follow for any discharge planning/needs.? Pt voices no concerns/needs at this time.? Advised pt to ask for CM if any questions/concerns/needs arise.? Voices understanding. PLAN: ?Home w/spousal support and discharge plans in place. Vladimir WELLER RN, CM
[2021-10-17 17:32] LABS: Troponin-I HS 40 pg/mL (3.0-78.0)
[2021-10-17] MEDS: Acetaminophen 325 MG Tablet 650 MG PO (18:25)
[2021-10-17] MEDS: Losartan Potassium 50 MG Tablet PO (20:08)
[2021-10-17] MEDS: 0.9% Normal Saline 1,000 ML 100 ML IV (20:08)
[2021-10-17] MEDS: MELATONIN 3 MG TABLET PO (22:29)
[2021-10-17] MEDS: hydrALAZINE 20 MG/ML Vial 10 MG IV (22:29)
[2021-10-18 02:49] VITALS: PULSE 68
[2021-10-18 03:15] VITALS: BP 162/79; PULSE 67; RESP 18; TEMP 36.9; O2SAT 95
--- NOTE | 2021-10-18 05:50 | RAD_ITS ---
ACR Level 3 findings have been noted. An addendum which confirms receipt of the report will follow. STUDY: X-RAY CHEST REASON FOR EXAM: Male, 60 years old. Post permanent ICD/Pacemaker -- inspiration/expiration. Arms Down. Wet read to MD TECHNIQUE: PA and lateral views of the chest. COMPARISON: October 17, 2021 chest x-ray FINDINGS: Inspiration expiration images are provided. There is a left-sided pacemaker leads overlying the right atrium and ventricle. There is no visualized pneumothorax. There is minimal lower lobe atelectasis. There is mild cardiac enlargement. Normal mediastinum and brenda. Normal visualized pulmonary arteries. Normal visualized aortic arch and descending thoracic aorta. There are diffuse degenerative changes of the visualized thoracic spine. Normal visualized ribs, clavicles, and shoulders. There is no demonstrated abnormality of the visualized soft tissue structures of the upper abdomen. RAD/Chest Insp/Exp 2 View IMPRESSION: Left-sided pacer with leads overlying the right atrium and ventricle. No visualized pneumothorax. Electronically Signed: Ana Maria Díaz MD at 8:11 EDT Reading Location ID and State: [facility] / [place] Tel , Service support ,
--- NOTE | 2021-10-18 05:55 | EKG12_ITS ---
Test Reason : POST PACER Blood Pressure : / mmHG Vent. Rate : 069 BPM Atrial Rate : 069 BPM P-R Int : 190 ms QRS Dur : 166 ms QT Int : 484 ms P-R-T Axes : 030 270 071 degrees QTc Int : 518 ms Electronic ventricular pacemaker When compared with ECG of 17-OCT-2021 10:22, MANUAL COMPARISON REQUIRED, DATA IS UNCONFIRMED Confirmed by SHAHRZAD RAMIREZ, DANIEL ([id number]), senior editor BRANDI VIDAL ([id number]) on 10/21/2021 11:14:46 AM Referred By: HOLLY Confirmed By:DANIEL MARKHAM MD
[2021-10-18] MEDS: 0.9% Normal Saline 1,000 ML 100 ML IV (06:10)
[2021-10-18 07:00] VITALS: PULSE 66
[2021-10-18 07:14] LABS: Absolute Lymphocyte Count 0.93 X10^3/uL (0.83-4.51); Absolute Neutrophil Count 7.9 X10^3/uL (2.0-7.7); Basophil# 0.04 X10^3/uL; Basophil% 0.4 % (0-1); Eosinophil# 0.08 X10^3/uL; Eosinophils% 0.8 % (0-5); Hematocrit 38.3 % (40-54); Hemoglobin 13.1 g/dL (13.0-16.5); Lymphocyte # 0.93 X10^3/ul (0.83-4.51); Lymphocyte % 9.6 % (19-41); Mean Corp Hgb Conc 34.2 g/dL (32-36); Mean Corpuscular Hgb 28.9 pg (27.0-32.0); Mean Corpuscular Volume 84.5 fL (80-94); Mean Platelet Vol. 9.2 fl (6.2-12.0); Monocyte# 0.69 X10^3/uL; Monocyte% 7.1 % (0-10); NRBC Flagged by Analyzer 0 % (0-5); Neutrophil # 7.87 X10^3/uL (2.7-7.7); Neutrophil % 81.6 % (47-70); Platelet Count 222 K/mm3 (150-450); RBC Distribution Width CV 13.2 % (11.6-14.6); RBC Distribution Width SD 41.1 fl (35.1-43.9); Red Blood Count 4.53 M/mm3 (4.6-6.2); White Blood Count 9.7 K/mm3 (4.4-11.0)
[2021-10-18 07:34] VITALS: O2SAT 95
[2021-10-18 07:40] LABS: ALB/GLOB Ratio 1.1 RATIO (0.9-2.4); AST(SGOT) 32 U/L (15-37); Alanine Aminotransfer ALT/SGPT 162 U/L (16-61); Albumin, Serum 3.6 g/dL (3.2-5.0); Alkaline Phosphatase 104 U/L (45-117); Anion Gap 6 (5-15); BUN 14 mg/dL (7-18); BUN/Creat Ratio 15.9 RATIO (10-20); Calcium,Total 8.1 mg/dL (8.5-10.1); Chloride 107 mmol/L (98-107); Creatinine, Serum 0.88 mg/dL (0.70-1.30); EST Glomerular Filtration Rate 94 mL/min (>60); Est Glom Filt Rate - Afr Amer 113 mL/min (>60); Estimated Creatinine Clearance 97.98 ml/min; Globulin 3.3 g/dL (2.2-4.2); Glucose 114 mg/dL (74-106); Protein, Total 6.9 g/dL (6.4-8.2); Sodium Level 137 mmol/L (136-145)
--- NOTE | 2021-10-18 10:08 | DS.PCM_ITS ---
Providers Date of Admission: 10/17/21 Primary Care Physician: Dr. Anne Blackman MD Reason For Visit: COMPLETE HB, DYSPNEA Diagnosis Discharge Diagnosis (1) Complete heart block: Status: Acute Code(s): I44.2 - Atrioventricular block, complete (2) Essential hypertension: Status: Chronic Code(s): I10 - Essential (primary) hypertension Medications at Discharge Home Medications krill oil 500 mg capsule PO 06/19/20 tumeric PO 06/19/20 losartan-hydrochlorothiazide 1 tab PO DAILY 30 Days #30 tab 10/18/21 Hospital Course Operations - (Pacemaker placement.) Procedures 2-D Echocardiogram and EKG Summary of Care Provided Minutes Spent on Discharge: 35 Hospital Course: Discharge Diagnoses: #1. Exertional dyspnea secondary to acute intermittent complete heart block, Unclear etiology for onset #2. Hypertension, uncontrolled #3. Former tobacco use #4. Obesity Discharge Summary: The patient is a 60 y/o M w/ PMHx: HTN, Obesity, Former tobacco use who presented to the [facility] ED on 10/17/21 with history of onset dyspnea, worse with any exertion including any activity in his own home with PCP office evaluation with noted bradycardia on EKG with no prior history prompting them to refer patient to the ED for evaluation. Unclear etiology for onset of incomplete heart block with no medications which the patient is on which could be responsible and no history of any coronary disease but some concern for cardiology for possible sarcoidosis versus Lyme disease w/ pending Lyme IgG w/ Blot interp/IgM Ab upon discharge which will need to be followed up with primary care physician. Patient with ECHO in the ED w/ normal LV size, normal LV systolic function, EF 55%, stage II diastolic dysfunction, PASP 44 mmHg with contrast injection performed. Patient transition from the ED to the cardiac catheterization lab with permanent pacemaker placement. Following patient transition to the PCU and maintained on monitor without event. Cyclic cardiac enzymes remain unremarkable. Pacemaker nurse 10/18/2021 reassessment and chest x-ray with no acute findings. TSH normal. Magnesium normal. Given patient elevated blood pressure adjustments were initially made with increase of his losartan to 100 mg however BP remained above goal therefore a low-dose of hydrochlorothiazide was also initiated. Given patient significant improvement and quickness of pacemaker implantation patient felt safe and appropriate and faster timeline expected for discharge to home. Patient discharged to home on this new regimen with requested follow-up with PCP for repeat BP check as well as basic metabolic panel. Patient cleared per cardiology and discharged home with recommended follow-up with PCP as noted in addition to cardiology for pacer recheck and reevaluation. Discharge Time: > 35 Minutes DAY OF DISCHARGE PROGRESS NOTE: Subjective: Patient without acute event overnight per self and nursing report. Patient notes dyspnea sensation has lessened following pacemaker placement. Patient notes minimal discomfort to the left upper chest. Patient denies fever, chills, nausea, emesis, abdominal pain, chest pain or dyspnea. Patient agreeable to discharge to discharge to home with plan follow-up. Patient will be discharged with follow-up with primary care physician within 3-5 days in addition to cardiology per their request. Objective: T 98.4, heart rate 67, BP 162/79, respiratory rate 18, 95% on room air. Physical Examination: General: Awake, alert, oriented x 3 and cooperative, seated upright in the PCU bed, no acute distress, notes feeling improved. Skin: Normal color, normal turgor, no icterus, no cyanosis except noted left upper chest with dressing in place status post pacemaker with no drainage. HEENT: AT/NC, EOMI, PERRLA, MMM. Lungs: Diminished, distant, appropriate effort, no rales, ronchi or wheezing. Heart: Bradycardic; no gallop, rub audible. Abdomen: Soft, obese, NTTP, ND, normal BS, no HSM. Extremities: No cyanosis, clubbing, or edema. Neurological: Patient awake, alert, oriented as noted, cognitive function intact; pupils equally reactive to light and accommodation, cranial nerves II- XII grossly normal, moving all 4 extremities, no focal deficits, strength moderately global decrease secondary to acute presentation. Psychiatric: Affect appears fatigued otherwise normal, no acute evidence of depressive or anxiety feelings. Assessment and Plan: Please see hospital summary above. Weight / BMI Weight Weight: 289 lb 0.416 oz Body Mass Index (BMI) 39.0 ABG / Lab / Microbiology Data Result Diagrams: 10/18/21 06:52 10/18/21 06:52 Laboratory: Laboratory Results - last 24 hr 10/17/21 10:29: WBC 8.2, RBC 4.65, Hgb 13.5, Hct 39.6 L, MCV 85.2, MCH 29.0, MCHC 34.1, RDW Std Deviation 41.2, RDW Coeff of Brenda 13.3, Plt Count 252, MPV 9.4, Immature Gran % (Auto) 1.000 H, Neut % (Auto) 68.2, Lymph % (Auto) 20.1, [place] % (Auto) 7.9, Eos % (Auto) 2.1, Baso % (Auto) 0.7, Absolute Neuts (auto) 5.6, Absolute Lymphs (auto) 1.66, Nucleated RBC % 0 10/17/21 10:29: PT 13.0, INR 1.0, APTT 28.2 10/17/21 10:29: Sodium 138, Potassium 4.6, Chloride 107, Carbon Dioxide 28.0, Anion Gap 3 L, BUN 20 H, Creatinine 1.08, Estim Creat Clear Calc 82.20, Est GFR (MDRD) Af Amer 89, Est GFR (MDRD) Non-Af 74, BUN/Creatinine Ratio 18.5, Glucose 106, Calcium 8.7, Troponin I High Sens 10 10/17/21 12:51: Magnesium 2.4, Troponin I High Sens 11, TSH 1.74 10/17/21 16:29: Troponin I High Sens 40 10/18/21 06:52: WBC 9.7, RBC 4.53 L, Hgb 13.1, Hct 38.3 L, MCV 84.5, MCH 28.9, MCHC 34.2, RDW Std Deviation 41.1, RDW Coeff of Brenda 13.2, Plt Count 222, MPV 9.2, Immature Gran % (Auto) 0.500, Neut % (Auto) 81.6 H, Lymph % (Auto) 9.6 L, [place] % (Auto) 7.1, Eos % (Auto) 0.8, Baso % (Auto) 0.4, Absolute Neuts (auto) 7.9 H, Absolute Lymphs (auto) 0.93, Nucleated RBC % 0 10/18/21 06:52: Sodium 137, Potassium 4.0, Chloride 107, Carbon Dioxide 24.0, Anion Gap 6, BUN 14, Creatinine 0.88, Estim Creat Clear Calc 97.98, Est GFR (MDRD) Af Amer 113, Est GFR (MDRD) Non-Af 94, BUN/Creatinine Ratio 15.9, Glucose 114 H, Calcium 8.1 L, Total Bilirubin 0.80, AST 32, ALT 162 H, Alkaline Phosphatase 104, Total Protein 6.9, Albumin 3.6, Globulin 3.3, Albumin/Globulin Ratio 1.1 Radiography Diagnostic Testing: Radiology Impression Chest X-Ray 10/17/21 10:51 IMPRESSION: Mild increased markings at the lung bases suggestive of bibasilar atelectasis and/or early infiltrate slightly worse on the right side. Electronically Signed: Calos Bajwa MD at 11:21 EDT , Echocardiogram 10/17/21 11:30 Interpretation Summary Normal LV size. Left ventricular systolic function is normal. The estimated ejection fraction is 55 %. Stage 2 diastolic dysfunction. Pulmonary artery systolic pressure is 44 mmHg. Contrast injection was performed. Ordering Physician: Dio Saucedo Referring Physician: Anne Blackman M.D. Performed By: Sofy Vargas, LEXI, RVT Chest X-Ray 10/18/21 05:50 IMPRESSION: Left-sided pacer with leads overlying the right atrium and ventricle. No visualized pneumothorax. Electronically Signed: Ana Maria Díaz MD at 8:11 EDT , ADDENDUM: 10/18/21 0924 IMPRESSION: Left-sided pacer with leads overlying the right atrium and ventricle. No visualized pneumothorax. N.B. : Devorah [id number], AA, confirmed on 10/18/2021 09:17:07 (ET) that the healthcare facility has received the radiology report. Electronically Signed: Ana Maria Díaz MD at 8:11 EDT Reading Location ID and State: Pending sale to [facility] / [place] Tel , Service support , D/C Instructions Discharge Diet: Low fat / Low cholesterol May shower in (days): 3 May resume sexual activity in: - (Activity restrictions per Cardiology as noted.) Additional Activity Instructions: Do not lift the left arm above the shoulder Call your doctor if your incision/area has: Continuous Slow Oozing, Sudden Increased Bleeding, Increased Pain/ Swelling, Increased Redness, Foul Smelling Discharge and Swelling at the incision site Call your doctor if you observe: Fever of 101 or Higher, Change in Color, Inability to urinate, Dizziness, Chest pain, Increased palpitations (irregular heartbeat), Calf discomfort and Uncontrolled pain Additional Dressing/Incision Instructions: When dressing is removed, wash and dry incision. Keep covered with a light bandage if it is rubbing against your clothing. Do not cover the incision with an airtight bandage. Change the bandage daily. Do not remove steri strips. The strips will fall off on their own. Please Follow Up With: Mikie Mendez MD When: Call [phone] for follow up. Pacemaker follow-up October 28 at 11 AM Meaningful Use Info Meaningful Use Diagnoses (Choose all that apply): None applicable Discharge Plan Admission Admit Date/Time: 10/17/21 11:39 Primary Reason for Your Visit: Intermittent complete heart block, Uncontrolled HTN Attending Provider: Wendy Springer Primary Care Provider: Anne Blackman Instructions Patient Instructions: Taking DAV Inhibitors, Living with a Pacemaker, Low-Salt Choices, Taking a Diuretic, Hypertension Dc, Low Salt Diet Dc Discharge Orders/Prescriptions Prescriptions: New losartan-hydrochlorothiazide 100-12.5 mg tablet 1 tab PO DAILY 30 Days Qty: 30 RF: 0 Continued tumeric PO RF: 0 krill oil 500 mg capsule PO RF: 0 Discontinued losartan 50 mg tablet 50 mg PO DAILY Qty: 90 RF: 1 Referrals / Follow Up: Mikie Mendez MD [STAFF PHYSICIAN] - (Pacemaker follow-up October 28 am.) Anne Blackman MD [Primary Care Provider] - (Follow-up within 3-5 days to review admission and have repeat BP check given medication changes as well as follow-up basic metabolic panel.) Disposition Disposition (needs filled in before D/C Order can be placed): Home, Self Care Charges/Coding Visit Charges Inpatient E&M: 74767 Disch Hosp
[2021-10-18 10:45] VITALS: BP 162/79; PULSE 67; RESP 18; TEMP 36.9; O2SAT 95
[2021-10-24 16:10] LABS: Lyme IgG P18 Ab Absent (.); Lyme IgG P23 Ab Absent (.); Lyme IgG P28 Ab Absent (.); Lyme IgG P30 Ab Absent (.); Lyme IgG P39 Ab Absent (.); Lyme IgG P41 Ab Absent (.); Lyme IgG P45 Ab Absent (.); Lyme IgG P58 Ab Absent (.); Lyme IgG P66 Ab Absent (.); Lyme IgG P93 Ab Absent (.); Lyme IgM P23 Ab Absent (.); Lyme IgM P39 Ab Absent (.); Lyme IgM P41 Ab Absent (.)
[2021-10-24 16:56] LABS: Lyme IgG WB Interpretation Negative (.); Lyme IgM WB Interpretation Negative (.)
== END 2021-10-18 11:26 | disposition home or self-care (01) | DRG 244 ==
LOC: ED 11:32 → PCU 10-18 10:07
PROVIDERS: Internal Medicine Cardiovascular Disease; Admitting Provider Family Medicine; Emergency Provider Emergency Medicine; PCP Internal Medicine; Visit Provider Family Medicine
DX: I44.2 Atrioventricular block, complete (principal); E66.9 Obesity, unspecified; I10 Essential (primary) hypertension; Z68.39 Body mass index [BMI] 39.0-39.9, adult; Z79.899 Other long term (current) drug therapy; Z87.891 Personal history of nicotine dependence
CPT/HCPCS: 33208; 36415; 71045; 71046; 80048; 80053; 83735; 84443; 84484; 85025; 85610; 85730; 86617; 93005; 93306; 99152; 99153; 99284; J7030; J7040; J7050; Q9957; A4216; C1894; C8929

== ENCOUNTER 2021-12-20 06:14 | Emergency (ER) | payer OTHER, SELFPAY ==
[2021-12-20 06:16] VITALS: BP 170/91; PULSE 65; RESP 16; TEMP 36.5; O2SAT 96; BMI 37.1
--- NOTE | 2021-12-20 06:34 | EDS_ITS ---
HPI History of Present Illness Chief Complaint: General Illness Informant: patient Onset/Context/Timing Onset: Days (6-7) Context: Gradual Onset Timing: Continuous Quality: malaise, cough Location: chest Current Severity: Moderate Maximum Severity: Moderate Worsened by: coughing Relieved by: nothing Associated Symptoms Associated Symptoms: fevers/chills now resolved; chest sore only w/ coughing Narrative Narrative: Patient has had respiratory illness with fevers and chills, yesterday he did a home COVID test that returned positive. He is vaccinated and boosted. He denies dyspnea. He denies leg swelling or pain. He feels malaise but he is still getting around okay. Lives with his , who was ill now for the last couple days as well. She is also seen here as a patient. [facility] Medical History Complete heart block Essential hypertension Former tobacco use Obesity Home Medications krill oil 500 mg capsule PO 06/19/20 [History Last Taken Unknown] tumeric PO 06/19/20 [History Last Taken Unknown] losartan 100 mg-hydrochlorothiazide 12.5 mg tablet 1 tab PO DAILY 30 Days #60 tab 10/22/21 [Rx Last Taken Unknown] hydrochlorothiazide 12.5 mg tablet 12.5 mg PO DAILY #60 tab 11/25/21 [Rx Last Taken Unknown] zinc acetate 50 mg (zinc) capsule 50 mg PO DAILY 11/25/21 [History Last Taken Unknown] amlodipine 2.5 mg tablet 2.5 mg PO DAILY #30 tab 12/04/21 [Rx Last Taken Unknown ] Allergy/AdvReac Type Severity Reaction Status Date / Time No Known Allergies Allergy Verified 12/20/21 06:20 Family History Father Cancer Heart disease Hypertension Mother Diabetes Heart disease Grandmother Breast cancer Surgical History bilateral shoulder surgery H/O lateral meniscus repair of right knee History of herniorrhaphy History of permanent cardiac pacemaker placement (10/17/21) Social History household members: spouse Smoking Status: Former smoker how long ago did patient quit smoking: Quit cigarette tobacco 1997, prior 1 ppd since teenager. alcohol intake: current alcohol intake frequency: a few times a week substance use type: does not use ROS ROS ED Constitutional Constitutional ED: Reports chills, fever(s) and malaise; Denies body ache(s) or headache(s) ENT ENT ED: Reports nasal congestion, rhinorrhea and sore throat Cardiovascular Cardiovascular: Reports as per HPI and chest pain; Denies chest pain at rest, chest pain with activity, dyspnea, lightheadedness or palpitations Respiratory/Chest Respiratory/Chest: Reports cough; Denies dyspnea Gastrointestinal Gastrointestinal: Denies abdominal pain, diarrhea, nausea or vomiting Genitourinary Genitourinary ED: Denies dysuria or hematuria Musculoskeletal Musculoskeletal: Denies myalgias or neck pain Integumentary Denies abscess or rash Neurologic Neurologic: Denies headache(s), paresthesias or weakness Psychiatric Psychiatric: Denies depression or suicidal thoughts Endocrine Endocrinology: Denies polydipsia or polyuria EXAM Physical Exam Const Vital Signs: 12/20/21 06:16 12/20/21 06:25 Temperature 97.7 F L Temperature Source Temporal Pulse Rate 65 Respiratory Rate 16 Respiratory Effort Non-Labored Respiratory Pattern Normal Blood Pressure 170/91 H Blood Pressure Mean 117 Pulse Ox 96 Oxygen Delivery Method Room Air Positive well nourished and well developed General Appearance ED: well developed and NAD HEENT Reports moist mucous membranes normocephalic and atraumatic Throat: Negative for posterior oropharynx abnormal Eyes PERRL and EOMs intact bilaterally Neck no lymphadenopathy, supple and no meningeal signs Resp normal respiratory effort and clear to auscultation bilaterally Cardio no murmurs Rate: regular rate; Negative for tachycardic Rhythm: regular rhythm GI normal to inspection, nondistended, normoactive bowel sounds, soft to palpation and non-tender Back/Spine no CVA tenderness, normal ROM and normal to inspection Extremity normal to inspection, full ROM, no calf tenderness and no pedal edema Neuro oriented x3, CN's II-XII intact bilaterally and no sensory deficits noted Sensorium / Orientation: alert Motor Exam: strength 5/5 throughout Skin Lesions: no lesions Rashes: no rashes MDM MDM MDM Narrative Medical decision making narrative: Performed a rapid COVID to verify, it is positive, so therefore since the patient is on day 7 of illness he is a candidate for the monoclonal antibody infusion therapy, since he is outside of 5 days he is not a candidate for the oral antiviral therapies that are currently available. He will be referred, we talked to nursing supervisor inspection department to try to get him the infusion today since it is the last day he will be a candidate. His pulse ox is 96-98 on room air, he is not tachycardic, his chest soreness is musculoskeletal and there is no reason to evaluate him for PE or COVID pneumonitis at this time. We discussed reasons to return and to watch his pulse ox at home. His blood pressure is elevated but he has not yet taken his blood pressure medications this morning and he is on 3 of them. Discharge Plan Triage Chief Complaint: General Illness ED Provider: Arsalan Gorman Dx/Rx/DC Orders Clinical Impression: COVID-19, Hypertension Instructions: Coronavirus Disease 2019 (COVID-19): Caring for Yourself or Others Prescriptions: No Action tumeric PO RF: 0 krill oil 500 mg capsule PO RF: 0 losartan-hydrochlorothiazide 100-12.5 mg tablet 1 tab PO DAILY 30 Days Qty: 60 RF: 1 zinc acetate 50 mg (zinc) capsule 50 mg PO DAILY RF: 0 hydrochlorothiazide 12.5 mg tablet 12.5 mg PO DAILY Qty: 60 RF: 3 amlodipine 2.5 mg tablet 2.5 mg PO DAILY Qty: 30 RF: 6 Other Ambulatory Orders: COVID Outpatient Monoclonal Antibody Referral (Routine) Timeframe: 1 Day Facility: [facility] Location: [facility] Ordered By: Dr. Arsalan Gorman Primary Care Provider: Anne Blackman Referrals: Anne Blackman MD [Primary Care Provider] - As Needed Activity Restrictions/Additional Instructions: Try to get a home portable pulse oximeter and closely watch your oxygen levels periodically. If you stay below 90% for more than a minute or so, and/or you are feeling like your breathing is getting worse, return to the emergency department for further evaluation. You are a candidate for monoclonal antibody infusion therapy, see the attached instructions for more information. They will call you concerning when they want you to come to the clinic to get the infusion which is a one-time dose to help protect you from getting more ill and becoming hospitalized with life- threatening illness due to Covid given your risk for worsening. Disposition Disposition: Home, Self Care
== END 2021-12-20 07:35 | disposition home or self-care (01) ==
PROVIDERS: Emergency Provider Emergency Medicine; PCP Internal Medicine; Visit Provider Emergency Medicine
DX: U07.1 COVID-19 (principal); I10 Essential (primary) hypertension; Z87.891 Personal history of nicotine dependence
CPT/HCPCS: 87811; 99282

== ENCOUNTER → 2022-02-12 | Outpatient (CLI) | payer OTHER, SELFPAY ==
[2022-02-12 08:54] LABS: Absolute Lymphocyte Count 1.65 X10^3/uL (0.83-4.51); Basophil# 0.05 X10^3/uL; Basophil% 0.7 % (0-1); Eosinophil# 0.19 X10^3/uL; Eosinophils% 2.5 % (0-5); Hematocrit 41.9 % (40-54); Hemoglobin 13.6 g/dL (13.0-16.5); Lymphocyte # 1.65 X10^3/ul (0.83-4.51); Lymphocyte % 22.1 % (19-41); Mean Corp Hgb Conc 32.5 g/dL (32-36); Mean Corpuscular Hgb 27.9 pg (27.0-32.0); Mean Platelet Vol. 9.1 fl (6.2-12.0); Monocyte# 0.55 X10^3/uL; Monocyte% 7.4 % (0-10); NRBC Flagged by Analyzer 0 % (0-5); Neutrophil # 4.96 X10^3/uL (2.7-7.7); Neutrophil % 66.2 % (47-70); Platelet Count 233 K/mm3 (150-450); RBC Distribution Width CV 13.4 % (11.6-14.6); RBC Distribution Width SD 42.4 fl (35.1-43.9); Red Blood Count 4.87 M/mm3 (4.6-6.2); White Blood Count 7.5 K/mm3 (4.4-11.0)
[2022-02-12 09:26] LABS: Vitamin D,25 Hydroxy 24.3 ng/mL
[2022-02-12 09:34] LABS: ALB/GLOB Ratio 1.1 RATIO (0.9-2.4); AST(SGOT) 15 U/L (15-37); Alanine Aminotransfer ALT/SGPT 37 U/L (16-61); Albumin, Serum 3.9 g/dL (3.2-5.0); Alkaline Phosphatase 87 U/L (45-117); Anion Gap 6 (5-15); BUN 19 mg/dL (7-18); BUN/Creat Ratio 19.7 RATIO (10-20); Chloride 100 mmol/L (98-107); Creatinine, Serum 0.97 mg/dL (0.70-1.30); EST Glomerular Filtration Rate 84 mL/min (>60); Est Glom Filt Rate - Afr Amer 102 mL/min (>60); Globulin 3.6 g/dL (2.2-4.2); Glucose 111 mg/dL (74-106); PSA,Total - Annual Screen 3.95 ng/mL (0.00-4.00); Potassium 4.2 mmol/L (3.5-5.1); Protein, Total 7.5 g/dL (6.4-8.2); Sodium Level 136 mmol/L (136-145)
== END | disposition home or self-care (01) ==
LOC: LAB 08:02
PROVIDERS: PCP Internal Medicine; Visit Provider Internal Medicine
DX: I10 Essential (primary) hypertension (principal); E66.9 Obesity, unspecified; E55.9 Vitamin D deficiency, unspecified; Z95.0 Presence of cardiac pacemaker
CPT/HCPCS: 36415; 80053; 82306; 84153; 85025; G0103

== ENCOUNTER 2022-09-24 16:56 | Emergency (ER) | payer OTHER, SELFPAY ==
[2022-09-24 16:57] VITALS: BP 199/96; PULSE 69; RESP 16; TEMP 36.2; O2SAT 99; BMI 37.8
[2022-09-24 18:30] VITALS: BP 162/94
--- NOTE | 2022-09-24 18:48 | ED.RN ---
Per pt pt talked to his senior visual designer and was given orders to follow for his bp. Pt stating they will be leaving and will f/u with his doctors.
== END 2022-09-24 18:47 | disposition left against medical advice (07) ==
LOC: ED 18:53
PROVIDERS: PCP Internal Medicine
DX: Z53.21 Procedure and treatment not carried out due to patient leaving prior to being seen by health care provider (principal)

== ENCOUNTER → 2022-12-10 | Outpatient (CLI) | payer OTHER, SELFPAY ==
[2022-12-10 10:54] LABS: Absolute Lymphocyte Count 1.83 X10^3/uL (0.83-4.51); Absolute Neutrophil Count 5.3 X10^3/uL (2.0-7.7); Basophil# 0.06 X10^3/uL; Basophil% 0.7 % (0-1); Eosinophil# 0.22 X10^3/uL; Eosinophils% 2.7 % (0-5); Hematocrit 44.7 % (40-54); Hemoglobin 14.3 g/dL (13.0-16.5); Lymphocyte # 1.83 X10^3/ul (0.83-4.51); Lymphocyte % 22.7 % (19-41); Mean Corpuscular Hgb 27.6 pg (27.0-32.0); Mean Corpuscular Volume 86.1 fL (80-94); Mean Platelet Vol. 9.5 fl (6.2-12.0); Monocyte% 7.4 % (0-10); NRBC Flagged by Analyzer 0 % (0-5); Neutrophil # 5.25 X10^3/uL (2.7-7.7); Neutrophil % 65.1 % (47-70); Platelet Count 261 K/mm3 (150-450); RBC Distribution Width CV 13.2 % (11.6-14.6); RBC Distribution Width SD 41.3 fl (35.1-43.9); Red Blood Count 5.19 M/mm3 (4.6-6.2); White Blood Count 8.1 K/mm3 (4.4-11.0)
[2022-12-10 11:32] LABS: Vitamin D,25 Hydroxy 32.6 ng/mL
[2022-12-10 11:39] LABS: Hemoglobin A1c 5.7 % (3.8-5.6)
[2022-12-10 11:41] LABS: ALB/GLOB Ratio 1.1 RATIO (0.9-2.4); AST(SGOT) 14 U/L (15-37); Alanine Aminotransfer ALT/SGPT 36 U/L (16-61); Albumin, Serum 4.1 g/dL (3.2-5.0); Alkaline Phosphatase 83 U/L (45-117); Anion Gap 7 (5-15); BUN 17 mg/dL (7-18); BUN/Creat Ratio 19.9 RATIO (10-20); Calcium,Total 8.8 mg/dL (8.5-10.1); Chloride 101 mmol/L (98-107); Cholesterol 182 mg/dL (200); Creatinine, Serum 0.86 mg/dL (0.70-1.30); EST Glomerular Filtration Rate 96 mL/min (>60); Est Glom Filt Rate - Afr Amer 117 mL/min (>60); Globulin 3.7 g/dL (2.2-4.2); Glucose 109 mg/dL (74-106); High Density Lipoprotein 34 mg/dL; Potassium 3.8 mmol/L (3.5-5.1); Protein, Total 7.8 g/dL (6.4-8.2); Sodium Level 136 mmol/L (136-145); Thyroid Stim Hormone (TSH) 1.82 uIU/mL (0.358-3.74); Triglycerides 261 mg/dL; Very Low Density Lipoprotein 52 mg/dL (5-40)
== END | disposition home or self-care (01) ==
LOC: LAB 09:59
PROVIDERS: PCP Internal Medicine; Referring Provider Internal Medicine; Visit Provider Internal Medicine
DX: Z00.00 Encounter for general adult medical examination without abnormal findings (principal); E55.9 Vitamin D deficiency, unspecified; I10 Essential (primary) hypertension; E66.9 Obesity, unspecified; R73.9 Hyperglycemia, unspecified; Z95.0 Presence of cardiac pacemaker
CPT/HCPCS: 36415; 80053; 80061; 82306; 83036; 84443; 85025

== ENCOUNTER → 2023-06-15 | Outpatient (CLI) | payer OTHER, SELFPAY ==
[2023-06-15 08:37] LABS: Absolute Lymphocyte Count 1.79 X10^3/uL (0.83-4.51); Basophil# 0.06 X10^3/uL; Basophil% 0.8 % (0-1); Eosinophil# 0.14 X10^3/uL; Eosinophils% 1.8 % (0-5); Hemoglobin 13.9 g/dL (13.0-16.5); Lymphocyte # 1.79 X10^3/ul (0.83-4.51); Lymphocyte % 23.5 % (19-41); Mean Corp Hgb Conc 32.3 g/dL (32-36); Mean Corpuscular Hgb 27.8 pg (27.0-32.0); Mean Platelet Vol. 9.1 fl (6.2-12.0); Monocyte# 0.57 X10^3/uL; Monocyte% 7.5 % (0-10); NRBC Flagged by Analyzer 0 % (0-5); Neutrophil # 4.97 X10^3/uL (2.7-7.7); Neutrophil % 65.2 % (47-70); Platelet Count 237 K/mm3 (150-450); RBC Distribution Width CV 13.1 % (11.6-14.6); RBC Distribution Width SD 40.2 fl (35.1-43.9); White Blood Count 7.6 K/mm3 (4.4-11.0)
[2023-06-15 09:08] LABS: Insulin 17.6 mU/L (2.6-37.6)
[2023-06-15 09:11] LABS: Hemoglobin A1c 5.4 % (3.8-5.6)
[2023-06-15 09:25] LABS: ALB/GLOB Ratio 1.1 RATIO (0.9-2.4); AST(SGOT) 16 U/L (15-37); Alanine Aminotransfer ALT/SGPT 39 U/L (16-61); Alkaline Phosphatase 84 U/L (45-117); Anion Gap 4 (5-15); BUN 17 mg/dL (7-18); BUN/Creat Ratio 16.5 RATIO (10-20); Calcium,Total 9.1 mg/dL (8.5-10.1); Chloride 103 mmol/L (98-107); Cholesterol 159 mg/dL (200); Creatinine, Serum 1.03 mg/dL (0.70-1.30); EST Glomerular Filtration Rate 78 mL/min (>60); Est Glom Filt Rate - Afr Amer 94 mL/min (>60); Globulin 3.6 g/dL (2.2-4.2); Glucose 120 mg/dL (74-106); High Density Lipoprotein 32 mg/dL; PSA,Total - Annual Screen 4.36 ng/mL (0.00-4.00); Potassium 4.3 mmol/L (3.5-5.1); Protein, Total 7.6 g/dL (6.4-8.2); Sodium Level 138 mmol/L (136-145); Triglycerides 297 mg/dL; Very Low Density Lipoprotein 59 mg/dL (5-40)
== END | disposition home or self-care (01) ==
LOC: LAB 07:59
PROVIDERS: PCP Internal Medicine; Referring Provider Internal Medicine; Visit Provider Internal Medicine
DX: I10 Essential (primary) hypertension (principal); I44.2 Atrioventricular block, complete; E66.9 Obesity, unspecified; E55.9 Vitamin D deficiency, unspecified; R73.9 Hyperglycemia, unspecified; Z95.0 Presence of cardiac pacemaker; Z12.5 Encounter for screening for malignant neoplasm of prostate
CPT/HCPCS: 36415; 80053; 80061; 82306; 83036; 83525; 84153; 84443; 85025; G0103

== ENCOUNTER → 2023-06-28 | Outpatient (CLI) | payer OTHER, SELFPAY ==
--- NOTE | 2023-06-28 07:55 | RDU_ITS ---
Reason For Study: HTN Right Renal Artery Left Renal Artery Unable to acquire HAVEN. Vessel Unable to acquire HAVEN. appears tortuous. Left renal artery proximal PSV/EDV Right renal artery proximal 99.2/24.1 . 134.6/28.2 PSV/EDV. Left renal artery mid 131.2/37.3 Right renal artery mid 194.9/49.4 PSV/EDV . PSV/EDV. Left renal artery distal 119.9/27.2 Right renal artery distal PSV/EDV. 133.7/35.2 PSV/EDV. Left Renal Parenchyma Right Renal Parenchyma Left upper pole medulla 52.0/14.5 Upper Pole Medula 56.3/14.2 PSV/EDV . PSV/EDV. Left upper pole medulla EDR 0.30 . Right upper pole medulla EDR 0.30 . Left upper pole medulla R.I. 0.72 . Right upper pole medulla R.I. UP Cortex 36.2/8.7 PSV/EDV. 0.75 . Left upper pole cortex EDR 0.20 . Upper Arjun Cortx 34.3/7.8 PSV/EDV. Left upper pole cortex R.I. 0.76 . Right upper pole cortex EDR 0.20 . Left lower Pole medulla 50.1/11.8 Right upper pole cortex R.I. 0.77 . PSV/EDV . Right lower Pole medulla 49.5/14.5 Left lower pole medulla EDR 0.20 . PSV/EDV . Left lower pole medulla R.I. 0.77 . Right lower pole medulla EDR 0.30 . Lower Pole Cortx 32.9/8.7 PSV/EDV. Right lower pole medulla R.I. Left lower pole cortex EDR 0.30 . 0.71 . Left lower pole cortex R.I. 0.73 . Lower Pole Cortex 29.2/9.6 PSV/EDV. Left Renal Hilar Right lower pole cortex EDR 0.30 . LT Hilar avg 115.6/29.3 PSV/EDV . Right lower pole cortex R.I. 0.67 . Left hilar acceleration time 30 Right Renal Hilar m/sec. Right Hilar avg 89.6/24.9 PSV/EDV. Left Renal Dimensions Right hilar acceleration time 30 Left kidney size 12.75 cm . m/sec. Left cortical dimension 2.04 cm . Right Renal Dimensions Right kidney size 13.15 cm . Right cortical dimension 1.97 cm . Aorta Proximal abdominal aorta 2.50 x 2.48 cm . Proximal abdominal aorta peak systolic velocity is 57.3 cm/sec . Distal abdominal aorta 2.10 x 2.03 cm . Distal abdominal aorta peak systolic velocity is 79.6 cm/sec . VL/Renal Artery Duplex Ultrasound Interpretation Summary Right renal artery patent with elevated velocities but normal renal-aortic rati o indicating no significant stenosis. Left renal artery patent with normal velocities and no evidence of stenosis. Limited study due to bilateral renal artery tortuosity and inability to visuali zed at origins. Right renal vein patent Left renal vein patent Right kidney normal in size Left kidney normal in size Ordering Physician: Liz White Referring Physician: Liz White Performed By: Jerrell Canchola RVT
== END | disposition home or self-care (01) ==
LOC: CVS 07:54
PROVIDERS: PCP Internal Medicine; Referring Provider Nurse Practitioner Gerontology; Visit Provider Nurse Practitioner Gerontology
DX: I10 Essential (primary) hypertension (principal)
CPT/HCPCS: 93975

== ENCOUNTER 2023-09-28 08:50 | Day surgery (SDC) | payer OTHER, SELFPAY ==
[2023-09-28 09:18] VITALS: BP 144/85; PULSE 60; RESP 18; TEMP 36.8; O2SAT 97; BMI 37.5
[2023-09-28] MEDS: Lactated Ringers 1,000 ML 15 ML IV (09:26)
--- OUTSIDE RECORDS SUMMARY | 2023-09-28 09:33 | XMS RPT_ITS | CCD ---
Author Name Unknown Address [address] [place] [address] [address] [place] [id number] Organization [facility] Progress note 10-31-2020 Note Date & Type Note Facility 10-31-2020 Note HNO ID: [id number] Author: Dolly Schumacher LPN Service: ? Author Type: ? Type: Progress Notes Filed: 11/01/2020 3:22 PM Note Text: PoshVinet message sent to patient. [facility] Progress note 10-30-2020 Note Date & Type Note Facility 10-30-2020 Note HNO ID: [id number] Author: Leni Sotelo) Bhavna Service: ? Author Type: Nurse Practitioner Type: Progress Notes Filed: 11/01/2020 3:22 PM Note Text: Orders placed. Leni Huggins APRN.PATCH PRESS OPERATOR [facility] Clinical Note 10-30-2020 Note Date & Type Note Facility 10-30-2020 Note Patient Outreach (FA MPWS) MYRIAM AGUIRRE ([id number]) 1960 M Date Time Provider Department 10/30/20 NAEL LOWERY) ALBERTO During your visit today, we recorded the following information about you: Nael Lowery LPN 11/01/2020 3:22 PM Signed POPULATION HEALTH NAVIGATION OUTREACH Action/FYI Pt overdue for Annual appt with labs. MAGDALENA 07/03/2019. Last med refill 02/13/20 for 6 month supply of medication. Labs pending. Please review and file. Will contact pt for appt once filed. Contact made with patient or family member? NO Pt identified by name and : NO Health Maintenance items due: HEPATITIS C SCREENING Completed HIV SCREENING Completed BP CONTROLLED (<130/80) Completed SHINGRIX VACCINE(1 of 2) Completed DEPRESSION SCREENING due on 03/01/2020 ANNUAL PCP TEAM CHRONIC DISEASE VISIT due on 07/03/2020 Message Sent to Practice: YES Navigation Signature: Nael Lowery LPN October 30, 2020 12:26 PM Leni Huggins APRN.RE 11/01/2020 3:22 PM Signed Orders placed. JUSTEN Linda LPN 11/01/2020 3:22 PM Signed Mychart message sent to patient. Allergies As of Date: 10/30/2020 Noted Allergy Reaction LISINOPRIL 03/01/2019 3 - Cough SEASONAL ALLERGIES 04/20/2011 14 - Other: See Comments Comments: Itchy eyes, scratchy throat Date Reviewed: 07/06/2019 Reviewed by: Abraham Ferraro LPN - Fully Assessed Reason for Visit: PHMA/Care Gap Outreach [3605] Primary Visit Diagnosis:Essential hypertension [I10] Other Visit Diagnoses:Elevated PSA [R97.20] Hyperlipidemia, mixed [E78.2] Metabolic syndrome [E88.81] Order(s):CMP (CMP) (FOR REMOTE [facility] USE) [SQRCMP] Order #: [id number] FUTURE LIPID PANEL (LIPB) (FOR REMOTE [facility] USE) [SQRLIPB] Order #: [id number] FUTURE CBC + DIFF (FOR REMOTE C USE) [SQRCBCDF] Order #: [id number] FUTURE PSA DIAGNOSTIC (FOR REMOTE [facility] USE) [SQRPSA] Order #: [id number] FUTURE HGB A1C [BHCJH6B] Order #: [id number] FUTURE Prescriptions as of 10/30/2020 Sig: LOSARTAN 50 MG TABLET Take 1 tablet by mouth once d* HYDROCHLOROTHIAZIDE 12.5 MG C* Take 1 capsule by mouth once * KRILL OIL ORAL Take by mouth. TURMERIC ORAL Take by mouth. ALYSE C ORAL Take by mouth. BENZONATATE 200 MG CAPSULE Take 1 capsule by mouth three* Patient not taking: Reported on 07/03/2019 MUCINEX 600 MG TABLET, EXTEND* Take 2 tablets by mouth twice* Patient not taking: Reported on 07/03/2019 BENZONATATE 100 MG CAPSULE Take 2 capsules by mouth thre* Patient not taking: Reported on 07/03/2019 LOSARTAN 50 MG TABLET Take 1 tablet by mouth once d* SILDENAFIL 50 MG TABLET 1/2-1 tab by mouth daily as n* Problem List As Of Date 10/30/2020 Noted Resolved Anal fissure [K60.2] 11/24/2007 12/14/2016 Acute gastritis without mention of hemorrhage [*11/24/2007 12/14/2016 Obesity [E66.9] 11/24/2007 Elevated blood pressure reading without diagnos*11/24/2007 12/14/2016 POLYP COLON [D12.6] 12/30/2007 DIVERTICULOSIS COLON - NO HEMORRHAGE [K57.30] 12/30/2007 12/14/2016 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 Author Type: ? Type: Progress Notes Filed: 11/01/2020 3:22 PM Note Text: POPULATION HEALTH NAVIGATION OUTREACH Action/FYI Pt overdue for Annual appt with labs. MAGDALENA 07/03/2019. Last med refill 02/13/20 for 6 month supply of medication. Labs pending. Please review and file. Will contact pt for appt once filed. Contact made with patient or family member? NO Pt identified by name and : NO Health Maintenance items due: HEPATITIS C SCREENING Completed HIV SCREENING Completed BP CONTROLLED (<130/80) Completed SHINGRIX VACCINE(1 of 2) Completed DEPRESSION SCREENING due on 03/01/2020 ANNUAL PCP TEAM CHRONIC DISEASE VISIT due on 07/03/2020 Message Sent to Practice: YES Navigation Signature: Nael Shelleyradhaeduardo RAMANDEEP October 30, 2020 12:26 PM [facility] Summary Purpose Family History No Family History Records Found Advance Directives No Advanced Directives Records Found Additional Source Comments (unrecognized sect ion and content) No Status Records Found INFORMATION SOURCE (unrecogn ized section and content) FOR RECORDS PERTAINING TO PATIENTS WHO ARE OR HAVE BEEN ENROLLED IN A CHEMICAL DEPENDENCY/SUBSTANCEABUSE PROGRAM, SOME INFORMATION MAY BE OMITTED. This clinical summary was aggregated from multiple sources. Caution should be exercised in using it in the provision of clinical care. This summary normalizes information from multiple sources, and as a consequence, information in this document may materially change the coding, format and clinical context of patient data. In addition, data may be omitted in some cases. CLINICAL DECISIONS SHOULD BE BASED ON THE PRIMARY CLINICAL RECORDS. [facility]. provides no warranty or guarantee of the accuracy or completeness of information in this document.
--- NOTE | 2023-09-28 09:46 | PCM.HP.BLA ---
History and Physical Date of Admission: 09/28/23 Visit Reasons: COLONOSCOPY Chief Complaint: colonscopy Is patient in pain?: No Allergies poison jose extract Allergy (Mild, Verified 08/16/23 08:31) Rash Medications alpha lipoic acid 600 mg-biotin 450 mcg tablet,extended release tab PO 09/21/22 [History Confirmed 08/16/23] cinnamon bark 500 mg capsule (Cinnamon) 500 mg PO DAILY 09/21/22 [History Confirmed 08/16/23] turmeric 400 mg capsule mg PO 09/21/22 [History Confirmed 08/16/23] vitamin B complex 1 tab PO DAILY 12/10/22 [History Confirmed 08/16/23] zinc acetate 50 mg (zinc) capsule 50 mg PO DAILY 12/10/22 [History Confirmed 08/16/23] omega 6-rkz-ygc-fish oil 300 mg-1,000 mg capsule (Fish Oil) 1 cap PO DAILY 12/17/22 [History Confirmed 08/16/23] amlodipine 10 mg tablet 10 mg PO DAILY #90 tabs 04/01/23 [Rx Confirmed 08/16/23] losartan 100 mg-hydrochlorothiazide 25 mg tablet 1 tab PO DAILY #90 tabs 04/01/23 [Rx Confirmed 08/16/23] metoprolol succinate 50 mg tablet,extended release 24 hr (Toprol XL) 50 mg PO DAILY #90 tabs 04/01/23 [Rx Confirmed 08/16/23] cholecalciferol (vitamin D3) 250 mcg (10,000 unit) capsule 250 mcg PO DAILY 06/10/23 [History Confirmed 08/16/23] hydralazine 25 mg tablet 25 mg PO TID #180 tabs 06/11/23 [Rx Confirmed 08/16/23] [facility] Medical History Complete heart block Essential hypertension Former tobacco use Obesity Surgical History bilateral shoulder surgery H/O lateral meniscus repair of right knee History of herniorrhaphy History of permanent cardiac pacemaker placement (10/17/21) Family History Father Cancer Heart disease HypertensionMother Diabetes Heart diseaseGrandmother Breast cancer Social History household members: spouse Smoking Status: Former smoker how long ago did patient quit smoking: Quit cigarette tobacco 1997, prior 1 ppd since teenager. alcohol intake: current alcohol intake frequency: a few times a week substance use type: does not use HPI HPI HPI: 62-year-old gentleman is being referred by Dr. Anne Blackman for surgical consultation regarding colonoscopic follow-up because of a personal history of colon polyps and a written copy my surgical consult recommendations will be returned to him. We have reports dated March 01, 2015 where I assisted the patient with a colonoscopy. Was performed with 5 mg Versed and 100 mg of Demerol. Multiple diverticula of the sigmoid colon were identified. The patient has a previous history of complete heart block and permanent cardiac place maker in place since October 12. The patient has no current symptoms. No bright red blood per rectum or melena. No abdominal pain. He feels much better with the pacemaker in place and does not have the shortness of breath this previously. No family history of colon cancer. He has had 2 previous colonoscopies. 1 about 14 years ago and one 9 years ago. On the first 1 it was noted that he had colon polyps. I do not currently have the pathology on that. The second colonoscopy did not demonstrate any polyps but did demonstrate significant diverticular disease. ROS General General: Yes weight change (gain); No appetite, fatigue, colon cancer, breast cancer or weakness HEENT HEENT: No difficulty swallowing, eye injury, eye surgery, swollen glands or hoarseness Endo Endocrine: No thyroid disease, diabetes mellitus, thyroid cancer, Hair loss, heat intolerance or cold intolerance Skin Skin: No rash or changing moles Musc Musculoskeletal: Yes arthritis; No back problems, rheumatoid arthritis, gout or joint pain Cardio Cardiovascular: Yes pacemaker and high blood pressure; No murmur, heart disease, atrial fibrillation, heart attack, heart stent, palpitations, shortness of breat with exertion or chest pain Psych Psychiatric: No depression, anxiety or hearing voices Resp Respiratory: No shortness of breath, No sleep apnea, No cough, No COPD, No asthma, No emphysema and No wheezing Gastro Gastrointestinal: No abdominal pain, No nausea or vomiting, No diarrhea, No constipation, No blood in stool, No acid reflux, Yes hemorrhoids, No ulcers, No gallbladder problem and No black,tarry stools Davi Hematologic: No blood thinners, No blood disorders, No bleeding, No anemia and No blood clots Neuro Neurologic: No system reviewed and no additional complaints, except as documented, No as per HPI, No abnormal gait, No abnormal hearing, No abnormal movements, No abnormal speech, No behavioral changes, No burning sensations, No confusion, No convulsions, No disequilibrium, No dizziness, No localized weakness, No frequent falls, No headache(s), No lack of coordination, No loss of vision, No memory loss, No numbness, No other visual disturbances, No radicular pain, No restless legs, No sensory deficit, No syncope, No tingling, No tremor(s), No weakness and No other Exam Const General: cooperative, healthy appearing, comfortable and no acute distress Nutritional Appearance: overweight HENMT Head: normal to inspection Eyes General: appearance normal, both eyes and all related structures Neck Neck: normal visual inspection Chest Chest palpation & inspection: normal inspection of the chest Resp Effort & Inspection: normal respiratory effort Cardio Rate: regular rate Rhythm: regular rhythm GI Inspection: normal to inspection Palpation: soft and no hepatosplenomegaly Musc Cervical Spine: normal cervical lordosis Skin General: no rashes or lesions noted Neuro General: patient alert, patient awake and patient oriented x3 Extrem General: no calf tenderness Psych Appearance: grossly normal Assessment and Plan Assessment and Plan (1) History of colon polyps: Status: Acute Plan: The patient has concerns regarding his high insurance deductible. I suggest to him that we try to obtain pathology from his very first colonoscopy to try to help decipher the number of polyps and pathology on the polyps. Pending that review will advise him as to whether he can wait an additional year or whether we should recommend that he pursue a colonoscopy at this time. He does have an anal fissure that intermittently bleeds. Currently he is asymptomatic from it. I appreciate the opportunity of assisting with his surgical care. Copy: Dr. Anne Barrett M.D., F.A.C.S. I have examined the patient and the H&P has been reviewed. There are no clinical changes since date of exam. Rob Barrett M.D., F.A.C.S.
--- NOTE | 2023-09-28 10:00 | COLBX_PTH ---
PATHOLOGY RESULTS PATIENT: MYRIAM AGUIRRE LOC: EN U#:[id number] AGE/SX: 62/M ROOM: RE09/28/[address]: Dr. Rob Barrett MD : 1960 BED: DIS: 09/28/2023 SPEC #: [id number] RECD: 09/28/23 13:10 STATUS: TASH FREEMAN #: [id number] ADITI: 09/28/23 10:[address]: Rob Barrett DEPT: SURGICAL PATHOLOGY RECD BY: Nevaeh Felix ENTERED: 09/28/23 13:11 SP TYPE: COLON BX OTHR DR: Dr. Anne Blackman MD Tissues: Transverse colon Rectum, NOS Procedures: Surgery Specimen Level IV HEADER OPERATION: Colonoscopy, polypectomy PRE-OP DIAGNOSIS: History of colon polyps TISSUE SUBMITTED: A - Distal transverse polyp, B - Rectal polyp MICROSCOPIC DIAGNOSIS A. Distal transverse colon polyp, polypectomy: Fragments of tubular adenoma. B. Rectal polyp, polypectomy: Hyperplastic polyp. KARLI:mic 09/29/2023 MICROSCOPIC DESCRIPTION Slides are reviewed. GROSS DESCRIPTION A - Received in fixative is one container labeled with the patient's name and designated distal transverse polyp. The specimen consists of multiple irregular fragments of light oneill soft tissue that in aggregate measure 1.0 x 0.3 x 0.1 cm. The specimen is totally submitted in one cassette. B - Received in fixative is one container labeled with the patient's name and designated rectal polyp. The specimen consists of one irregular fragment of light oneill soft tissue that measures 0.2 x 0.2 x 0.1 cm. The specimen is totally submitted in one cassette. / KARLI:mic 09/28/2023 TC:1 CPT: 60030 x2
[2023-09-28 10:20] VITALS: BP 102/73; BP 144/85; PULSE 60; RESP 16; TEMP 36.2; O2SAT 95
--- NOTE | 2023-09-28 10:24 | OP.CCLET_ITS ---
09/28/2023 Anne Blackman [facility] [address] [place] [address] Re : Colonoscopy procedure for Hernan Nugentkevin Dear Dr. Blackman This procedure was performed on Thursday, September 28, 2023. My impressions and recommendations are as follows: Impressions : - Non-thrombosed internal hemorrhoids and internal hemorrhoids that prolapse with straining, but spontaneously regress to the resting position (Grade II) found on digital rectal exam. - One 5 mm polyp in the distal transverse colon, removed with a cold snare. Resected and retrieved. Clip was placed. - One 3 mm polyp in the distal rectum, removed with a cold snare. Resected and retrieved. - Diverticulosis in the sigmoid colon. Recommendations : - Discharge patient to home. - Resume previous diet. - Continue present medications. - Repeat colonoscopy in 5 years for surveillance based on pathology results. - Telephone my office for pathology results in 1 week. My findings are described in the full procedure note, which is enclosed. If I can be of further assistance, please feel free to contact me at Doctor phone number(s): Work: . Sincerely, Rob Barrett MD 09/28/2023 10:23:35 AM This report has been signed electronically.
--- NOTE | 2023-09-28 10:24 | OP.COLON_ITS ---
Patient Name: Hernan Parker Procedure Date: 09/28/2023 9:51 AM Date of : 1960 Age: 62 Procedure: Colonoscopy Indications: High risk colon cancer surveillance: Personal history of colonic polyps Providers: Rob Barrett MD Medicines: See the Anesthesia note for documentation of the administered medications Patient Profile: Last Colonoscopy: February 2015. Complications: No immediate complications. Procedure: Pre-Anesthesia Assessment: - Prior to the procedure, a History and Physical was performed, and patient medications and allergies were reviewed. The patient's tolerance of previous anesthesia was also reviewed. The risks and benefits of the procedure and the sedation options and risks were discussed with the patient. All questions were answered, and informed consent was obtained. Prior Anticoagulants: The patient has taken no anticoagulant or antiplatelet agents. ASA Grade Assessment: III - A patient with severe systemic disease. After reviewing the risks and benefits, the patient was deemed in satisfactory condition to undergo the procedure. After I obtained informed consent, the scope was passed under direct vision. Throughout the procedure, the patient's blood pressure, pulse, and oxygen saturations were monitored continuously. The Colonoscope was introduced through the anus and advanced to the cecum, identified by appendiceal orifice and ileocecal valve. The colonoscopy was performed without difficulty. The patient tolerated the procedure well. The quality of the bowel preparation was good. The ileocecal valve and the appendiceal orifice were photographed. Scope In: 9:58:26 AM Scope Withdrawal Time 0 hours 14 minutes 19 seconds Scope Out: 10:16:57 AM Total Procedure Duration Time 0 hours 18 minutes 31 seconds Findings: The digital rectal exam findings include non-thrombosed internal hemorrhoids and internal hemorrhoids that prolapse with straining, but spontaneously regress to the resting position (Grade II). Pertinent negatives include normal prostate (size, shape, and consistency). A 5 mm polyp was found in the distal transverse colon. The polyp was sessile. The polyp was removed with a cold snare. Resection and retrieval were complete. To prevent bleeding post-intervention, one hemostatic clip was successfully placed. There was no bleeding at the end of the procedure. A 3 mm polyp was found in the distal rectum. The polyp was sessile. The polyp was removed with a cold snare. Resection and retrieval were complete. Multiple diverticula were found in the sigmoid colon. Impression: - Non-thrombosed internal hemorrhoids and internal hemorrhoids that prolapse with straining, but spontaneously regress to the resting position (Grade II) found on digital rectal exam. - One 5 mm polyp in the distal transverse colon, removed with a cold snare. Resected and retrieved. Clip was placed. - One 3 mm polyp in the distal rectum, removed with a cold snare. Resected and retrieved. - Diverticulosis in the sigmoid colon. Recommendation: - Discharge patient to home. - Resume previous diet. - Continue present medications. - Repeat colonoscopy in 5 years for surveillance based on pathology results. - Telephone my office for pathology results in 1 week. Procedure Code(s): --- Professional --- 76404, Colonoscopy, flexible; with removal of tumor(s), polyp(s), or other lesion(s) by snare technique Diagnosis Code(s): --- Professional --- Z86.010, Personal history of colonic polyps K64.1, Second degree hemorrhoids D12.3, Benign neoplasm of transverse colon (hepatic flexure or splenic flexure) D12.8, Benign neoplasm of rectum K57.30, Diverticulosis of large intestine without perforation or abscess without bleeding CPT copyright 2021 [employer]. All rights reserved. The codes documented in this report are preliminary and upon family law specialist review may be revised to meet current compliance requirements. Rob Barrett MD 09/28/2023 10:23:35 AM This report has been signed electronically. Number of Addenda: 0 Note Initiated On: 09/28/2023 9:51 AM
[2023-09-28 10:25] VITALS: BP 109/70; BP 144/85; PULSE 60; RESP 16; O2SAT 94
[2023-09-28 10:30] VITALS: BP 113/73; BP 144/85; PULSE 62; RESP 16; TEMP 37; O2SAT 95
[2023-09-28 10:48] VITALS: BP 144/85
== END 2023-09-28 10:57 | disposition home or self-care (01) ==
LOC: EN 08:54 → AC 08:56
PROVIDERS: PCP Internal Medicine; Referring Provider Surgery; Visit Provider Surgery
PROC: 0DJD8ZZ Inspection of Lower Intestinal Tract, Via Natural or Artificial Opening Endoscopic (ICD-10-PCS; CPT 45378; principal; 2023-09-28 09:55)
DX: Z12.11 Encounter for screening for malignant neoplasm of colon (principal); K57.30 Diverticulosis of large intestine without perforation or abscess without bleeding; K64.1 Second degree hemorrhoids; K62.1 Rectal polyp; D12.3 Benign neoplasm of transverse colon; I10 Essential (primary) hypertension; Z79.899 Other long term (current) drug therapy; Z95.0 Presence of cardiac pacemaker; Z87.891 Personal history of nicotine dependence; Z86.010 Personal history of colon polyps
CPT/HCPCS: 45385; 88305; J7120; J2405

== ENCOUNTER → 2023-12-16 | Outpatient (CLI) | payer OTHER, SELFPAY ==
[2023-12-16 08:40] LABS: Absolute Lymphocyte Count 1.56 X10^3/uL (0.83-4.51); Absolute Neutrophil Count 4.8 X10^3/uL (2.0-7.7); Basophil# 0.05 X10^3/uL; Basophil% 0.7 % (0-1); Eosinophil# 0.15 X10^3/uL; Eosinophils% 2.1 % (0-5); Hematocrit 40.7 % (40-54); Lymphocyte # 1.56 X10^3/ul (0.83-4.51); Lymphocyte % 21.7 % (19-41); Mean Corp Hgb Conc 31.9 g/dL (32-36); Mean Corpuscular Hgb 27.3 pg (27.0-32.0); Mean Corpuscular Volume 85.3 fL (80-94); Mean Platelet Vol. 9.2 fl (6.2-12.0); Monocyte# 0.51 X10^3/uL; Monocyte% 7.1 % (0-10); NRBC Flagged by Analyzer 0 % (0-5); Neutrophil # 4.84 X10^3/uL (2.7-7.7); Neutrophil % 67.4 % (47-70); Platelet Count 253 K/mm3 (150-450); RBC Distribution Width CV 13.2 % (11.6-14.6); RBC Distribution Width SD 41.6 fl (35.1-43.9); Red Blood Count 4.77 M/mm3 (4.6-6.2); White Blood Count 7.2 K/mm3 (4.4-11.0)
[2023-12-16 09:05] LABS: Vitamin D,25 Hydroxy 29.5 ng/mL
[2023-12-16 09:10] LABS: ALB/GLOB Ratio 1.2 RATIO (0.9-2.4); AST(SGOT) 19 U/L (15-37); Alanine Aminotransfer ALT/SGPT 54 U/L (16-61); Albumin, Serum 3.8 g/dL (3.2-5.0); Alkaline Phosphatase 73 U/L (45-117); Anion Gap 7 (5-15); BUN 17 mg/dL (7-18); BUN/Creat Ratio 17.8 RATIO (10-20); Calcium,Total 8.8 mg/dL (8.5-10.1); Chloride 107 mmol/L (98-107); Cholesterol 160 mg/dL (200); Creatinine, Serum 0.96 mg/dL (0.70-1.30); EST Glomerular Filtration Rate 85 mL/min (>60); Est Glom Filt Rate - Afr Amer 102 mL/min (>60); Globulin 3.3 g/dL (2.2-4.2); Glucose 117 mg/dL (74-106); Hemoglobin A1c 5.6 % (3.8-5.6); High Density Lipoprotein 28 mg/dL; PSA,Total- Diagnostic 4.68 ng/mL (0.0-4.0); Potassium 3.7 mmol/L (3.5-5.1); Protein, Total 7.1 g/dL (6.4-8.2); Sodium Level 137 mmol/L (136-145); Triglycerides 217 mg/dL; Very Low Density Lipoprotein 43 mg/dL (5-40)
== END | disposition home or self-care (01) ==
PROVIDERS: PCP Internal Medicine; Referring Provider Internal Medicine; Visit Provider Internal Medicine
DX: E78.6 Lipoprotein deficiency (principal); I44.2 Atrioventricular block, complete; E55.9 Vitamin D deficiency, unspecified; R97.20 Elevated prostate specific antigen [PSA]; I10 Essential (primary) hypertension; R73.9 Hyperglycemia, unspecified; Z95.0 Presence of cardiac pacemaker; Z82.49 Family history of ischemic heart disease and other diseases of the circulatory system
CPT/HCPCS: 36415; 80053; 80061; 82306; 83036; 84153; 85025

== ENCOUNTER → 2023-12-23 | Outpatient (CLI) | payer OTHER, SELFPAY ==
[2023-12-23 08:21] LABS: International Normalized Ratio 1.4; Partial Thromboplast Time 31.7 Seconds (24.1-36.2); Prothrombin Time (Protime)PT. 17.1 SECONDS (11.7-14.9)
== END | disposition home or self-care (01) ==
PROVIDERS: PCP Internal Medicine; Referring Provider Nurse Practitioner Gerontology; Visit Provider Nurse Practitioner Gerontology
DX: I48.91 Unspecified atrial fibrillation (principal)
CPT/HCPCS: 36415; 85610; 85730

== ENCOUNTER 2024-01-13 08:44 | Outpatient (RCR) | payer OTHER, SELFPAY ==
[2023-12-30 09:31] LABS: Prothrombin Time (Protime)PT. 22.7 SECONDS (11.7-14.9)
[2024-01-13 08:54] LABS: INR Fingerstick 1.7; Prothrombin Time Fingerstick 18.6 SEC (11.7-14.9)
== END 2024-01-13 18:00 | disposition home or self-care (01) ==
LOC: LAB 08:44
PROVIDERS: PCP Internal Medicine; Referring Provider Nurse Practitioner Gerontology; Visit Provider Nurse Practitioner Gerontology
DX: I48.91 Unspecified atrial fibrillation (principal); Z79.01 Long term (current) use of anticoagulants
CPT/HCPCS: 36415; 36416; 85610

== ENCOUNTER → 2024-01-13 | Outpatient (CLI) | payer OTHER, SELFPAY ==
--- NOTE | 2024-01-13 12:45 | STRESSREP ---
Stress Test Report Pharmacologic myocardial perfusion stress test. 63-year-old man with a history of atrial fibrillation Resting EKG demonstrates atrial fibrillation with ventricular pacing with a rate of 71 bpm. Resting blood pressure is 130/82 mmHg. 0.4 mg of regadenoson was infused per usual protocol followed by rapid intravenous saline flush injection. Continuous EKG monitoring was performed. The maximum heart rate was 77 bpm which was 49% of max impacted heart rate the maximum workload was 1 metabolic equivalent. At rest there were no ST or T wave changes noted to suggest ischemia and at peak infusion nonspecific ST changes were noted which did not meet the criteria for ischemia. No clinical angina is noted. The final blood pressure was 122/70 mmHg. Myocardial perfusion protocol. 15.5 mCi of technetium 99m sestamibi was injected at rest. 0.4 mg of regadenoson was infused per usual protocol. At peak infusion 44 mCi of technetium 99m sestamibi was injected stress images were obtained stress and rest images were reconstructed and compared in the short axis vertical long and horizontal long axis. Gated images were also obtained. Perfusion SPECT analysis: Review of the stress images demonstrate normal uptake of tracer noted in all areas of the myocardium. The resting images similar demonstrated normal uptake of tracer noted in all areas of the myocardium. No areas of reversibility are noted to suggest ischemia and no previous infarct is noted. Gated SPECT analysis: The gated ejection fraction is 30%. Conclusion: Normal pharmacologic myocardial perfusion stress test. Reduced ejection fraction.
== END | disposition home or self-care (01) ==
PROVIDERS: PCP Internal Medicine; Referring Provider Nurse Practitioner Gerontology; Visit Provider Nurse Practitioner Gerontology
DX: I48.91 Unspecified atrial fibrillation (principal); Z82.49 Family history of ischemic heart disease and other diseases of the circulatory system
CPT/HCPCS: 78452; 93017; A9500; A4216; J2785

== ENCOUNTER 2024-02-17 10:26 | Outpatient (RCR) | payer OTHER, SELFPAY ==
[2024-02-03 08:06] LABS: INR Fingerstick 1.7
[2024-02-17 10:35] LABS: INR Fingerstick 2.2; Prothrombin Time Fingerstick 22.5 SEC (11.7-14.9)
== END 2024-02-23 18:00 | disposition home or self-care (01) ==
LOC: LAB 10:26
PROVIDERS: PCP Internal Medicine; Referring Provider Nurse Practitioner Gerontology; Visit Provider Nurse Practitioner Gerontology
DX: I48.91 Unspecified atrial fibrillation (principal); Z79.01 Long term (current) use of anticoagulants
CPT/HCPCS: 36416; 85610

== ENCOUNTER → 2024-02-17 | Outpatient (CLI) | payer OTHER, SELFPAY ==
--- NOTE | 2024-02-17 10:37 | ECHOCS_ITS ---
Reason For Study: AFIB Procedure This was a 2D Doppler, Color Flow transthoracic echocardiogram. The study was technically difficult. Contrast injection was performed. Exam performed in department. Left Ventricle Normal LV size. The left ventricular ejection fraction is 45 %. Mild global left ventricular systolic dysfunction. No regional wall motion abnormalities noted. Right Ventricle Normal RV size. ICD or pacer leads identified within the right ventricle. Normal systolic function. Atria The left atrium is moderately enlarged. The right atrium is moderately enlarged. ICD or pacer leads identified within the right atrium. Mitral Valve Normal mitral valve. Tricuspid Valve Normal tricuspid valve. Aortic Valve Trisinus/trileaflet aortic valve. Pulmonic Valve Normal pulmonic valve. Great Vessels Normal aortic root. The pulmonary artery is normal size. Normal inferior vena cava. Pericardium/Pleural No pericardial effusion. Medication 22 gauge I.V. with prn adaptor inserted into right arm. Diluted definity 1ml given slow IV push to enhance endocardial definition. MMode/2D Measurements & Calculations LVIDd: 5.9 cm IVSd: 1.2 cm Ao root diam: 3.7 cm LVIDs: 3.5 cm LVPWd: 1.0 cm FS: 40.4 % LAV(MOD-sp4): 80.1 ml LVAd ap4: 45.0 cm2 SV(MOD-sp4): 78.1 ml LVLd ap4: 9.3 cm EDV(MOD-sp4): 182.4 ml EDV(sp4-el): 185.9 ml LVAs ap4: 32.3 cm2 LVLs ap4: 8.3 cm ESV(MOD-sp4): 104.3 ml ESV(sp4-el): 107.5 ml EF(MOD-sp4): 42.8 % EF(sp4-el): 42.2 % SV(sp4-el): 78.4 ml LA A4 area: 25.4 cm2 LA dimension(2D): 5.0 cm RA A4 area: 28.2 cm2 TAPSE: 2.0 cm Doppler Measurements & Calculations Ao V2 max: 109.6 cm/sec LV V1 max: 108.4 cm/sec PA V2 max: 84.8 cm/sec Ao max P.8 mmHg LV V1 max P.7 mmHg PA V2 mean: 56.2 cm/sec Ao V2 mean: 78.5 cm/sec LV V1 mean P.7 mmHg Ao mean P.8 mmHg LV V1 mean: 76.9 cm/sec Ao V2 VTI: 21.9 cm LV V1 VTI: 20.5 cm AV (velocity ratio): 0.94 ECHO/Echo Complete W/ Contrast Interpretation Summary The left ventricular ejection fraction is 45 %. Mild global left ventricular systolic dysfunction. The left atrium is moderately enlarged. The right atrium is moderately enlarged. Contrast injection was performed. Ordering Physician: Liz White Referring Physician: Liz White Performed By: Cielo Walker RCS
== END | disposition home or self-care (01) ==
LOC: CVS 10:27
PROVIDERS: PCP Internal Medicine; Referring Provider Nurse Practitioner Gerontology; Visit Provider Nurse Practitioner Gerontology
DX: I48.91 Unspecified atrial fibrillation (principal)
CPT/HCPCS: 93306; Q9957; A4216; C8929

== ENCOUNTER 2024-03-02 07:45 | Outpatient (RCR) | payer OTHER, SELFPAY ==
[2024-03-02 07:53] LABS: INR Fingerstick 2.6; Prothrombin Time Fingerstick 26.2 SEC (11.7-14.9)
== END 2024-03-02 18:00 | disposition home or self-care (01) ==
LOC: LAB 07:45
PROVIDERS: PCP Internal Medicine; Referring Provider Nurse Practitioner Gerontology; Visit Provider Nurse Practitioner Gerontology
DX: I48.91 Unspecified atrial fibrillation; Z79.01 Long term (current) use of anticoagulants
CPT/HCPCS: 36416; 85610

== ENCOUNTER 2024-03-31 07:14 | Outpatient (RCR) | payer OTHER, SELFPAY ==
[2024-03-31 08:14] LABS: International Normalized Ratio 2.5; Prothrombin Time (Protime)PT. 26.8 SECONDS (11.7-14.9)
[2024-03-31 09:47] LABS: PSA,Total- Diagnostic 5.01 ng/mL (0.0-4.0)
== END 2024-03-31 18:00 | disposition home or self-care (01) ==
LOC: LAB 07:14
PROVIDERS: PCP Internal Medicine; Referring Provider Nurse Practitioner Gerontology; Visit Provider Nurse Practitioner Gerontology
DX: I48.91 Unspecified atrial fibrillation (principal); Z79.01 Long term (current) use of anticoagulants; N40.0 Benign prostatic hyperplasia without lower urinary tract symptoms; R97.20 Elevated prostate specific antigen [PSA]
CPT/HCPCS: 36415; 84153; 85610

== ENCOUNTER 2024-05-12 08:21 | Outpatient (RCR) | payer OTHER, SELFPAY ==
[2024-04-28 10:40] LABS: INR Fingerstick 1.9
[2024-05-24 12:15] LABS: INR Fingerstick 2.4; Prothrombin Time Fingerstick 24.5 SEC (11.7-14.9)
== END 2024-05-12 18:00 | disposition home or self-care (01) ==
LOC: LAB 08:21
PROVIDERS: PCP Internal Medicine; Referring Provider Nurse Practitioner Gerontology; Visit Provider Nurse Practitioner Gerontology
DX: I48.91 Unspecified atrial fibrillation (principal); Z79.01 Long term (current) use of anticoagulants
CPT/HCPCS: 36416; 85610

== ENCOUNTER → 2024-06-14 | Outpatient (CLI) | payer OTHER, SELFPAY ==
--- NOTE | 2024-06-14 09:10 | RAD_ITS ---
INDICATION: Atrial Fibrillation EXAMINATION/TECHNIQUE: X-RAY - XR Chest 2 Views COMPARISON: October 18, 2021 FINDINGS: LINES/DEVICES: Stable left-sided pacemaker. LUNGS: No consolidation, edema or effusion. No pneumothorax. MEDIASTINUM AND CARDIOVASCULAR STRUCTURES: Cardiac silhouette not enlarged. Central airways and mediastinal contour are unremarkable. BONES AND SOFT TISSUES: Degenerative vertebral changes. RAD/Chest PA and Lateral IMPRESSION: No radiographic evidence of acute cardiopulmonary disease. Electronically Signed: Vignesh Sabillon DO at 19:38 EST ,
== END | disposition home or self-care (01) ==
LOC: RAD 09:10
PROVIDERS: PCP Internal Medicine; Referring Provider Nurse Practitioner Gerontology; Visit Provider Nurse Practitioner Gerontology
DX: I48.91 Unspecified atrial fibrillation (principal)
CPT/HCPCS: 71046

== ENCOUNTER 2024-06-19 09:50 | Outpatient (RCR) | payer OTHER, SELFPAY ==
[2024-06-07 08:49] LABS: Absolute Lymphocyte Count 1.45 X10^3/uL (0.83-4.51); Absolute Neutrophil Count 6.4 X10^3/uL (2.0-7.7); Basophil# 0.06 X10^3/uL; Basophil% 0.7 % (0-1); Eosinophil# 0.13 X10^3/uL; Eosinophils% 1.5 % (0-5); Hematocrit 41.7 % (40-54); Lymphocyte # 1.45 X10^3/ul (0.83-4.51); Lymphocyte % 16.7 % (19-41); Mean Corp Hgb Conc 33.6 g/dL (32-36); Mean Corpuscular Hgb 28.3 pg (27.0-32.0); Mean Corpuscular Volume 84.2 fL (80-94); Mean Platelet Vol. 9.2 fl (6.2-12.0); Monocyte% 6.9 % (0-10); NRBC Flagged by Analyzer 0 % (0-5); Neutrophil # 6.35 X10^3/uL (2.7-7.7); Neutrophil % 72.9 % (47-70); Platelet Count 270 K/mm3 (150-450); RBC Distribution Width CV 13.6 % (11.6-14.6); RBC Distribution Width SD 41.7 fl (35.1-43.9); Red Blood Count 4.95 M/mm3 (4.6-6.2); White Blood Count 8.7 K/mm3 (4.4-11.0)
[2024-06-07 09:15] LABS: Vitamin B12 782 pg/mL (211-911); Vitamin D,25 Hydroxy 33.7 ng/mL
[2024-06-07 09:21] LABS: ALB/GLOB Ratio 1.1 RATIO (0.9-2.4); AST(SGOT) 15 U/L (15-37); Alanine Aminotransfer ALT/SGPT 35 U/L (16-61); Alkaline Phosphatase 84 U/L (45-117); Anion Gap 5 (5-15); BUN 17 mg/dL (7-18); BUN/Creat Ratio 17.3 RATIO (10-20); Calcium,Total 8.7 mg/dL (8.5-10.1); Chloride 104 mmol/L (98-107); Cholesterol 197 mg/dL (200); Creatinine, Serum 0.98 mg/dL (0.70-1.30); EST Glomerular Filtration Rate 82 mL/min (>60); Est Glom Filt Rate - Afr Amer 99 mL/min (>60); Globulin 3.5 g/dL (2.2-4.2); Glucose 117 mg/dL (74-106); High Density Lipoprotein 33 mg/dL; Magnesium 2.1 mg/dL (1.6-2.6); Protein, Total 7.5 g/dL (6.4-8.2); Sodium Level 136 mmol/L (136-145); Triglycerides 349 mg/dL; Very Low Density Lipoprotein 70 mg/dL (5-40)
[2024-06-07 12:19] LABS: PSA,Total- Diagnostic 4.75 ng/mL (0.0-4.0)
[2024-06-09 11:30] LABS: INR Fingerstick 2.1
[2024-06-19 10:02] LABS: INR Fingerstick 2.2; Prothrombin Time Fingerstick 23.3 SEC (11.7-14.9)
== END 2024-06-24 18:00 | disposition home or self-care (01) ==
LOC: MTLAB 09:50
PROVIDERS: PCP Internal Medicine; Referring Provider Nurse Practitioner Gerontology; Visit Provider Nurse Practitioner Gerontology
DX: R97.20 Elevated prostate specific antigen [PSA] (principal); Z79.01 Long term (current) use of anticoagulants; I48.91 Unspecified atrial fibrillation; E78.6 Lipoprotein deficiency; E66.9 Obesity, unspecified; Z95.0 Presence of cardiac pacemaker; I44.2 Atrioventricular block, complete; Z13.220 Encounter for screening for lipoid disorders; E55.9 Vitamin D deficiency, unspecified; E53.8 Deficiency of other specified B group vitamins
CPT/HCPCS: 36415; 36416; 80053; 80061; 82306; 82607; 83735; 84153; 84443; 85025; 85610

== ENCOUNTER 2024-06-27 08:44 | Outpatient (RCR) | payer OTHER, SELFPAY ==
[2024-06-27 08:53] LABS: INR Fingerstick 2.8; Prothrombin Time Fingerstick 29.8 SEC (11.7-14.9)
== END 2024-06-27 18:00 | disposition home or self-care (01) ==
LOC: MTLAB 08:44
PROVIDERS: PCP Internal Medicine; Referring Provider Nurse Practitioner Gerontology; Visit Provider Nurse Practitioner Gerontology
DX: I48.91 Unspecified atrial fibrillation (principal); Z79.01 Long term (current) use of anticoagulants
CPT/HCPCS: 36416; 85610

== ENCOUNTER 2024-07-05 10:33 | Day surgery (SDC) | payer OTHER, SELFPAY ==
[2024-07-04 08:58] VITALS: BMI 38.7
[2024-07-05 10:52] LABS: INR Fingerstick 2.6; Prothrombin Time Fingerstick 27.3 SEC (11.7-14.9)
--- NOTE | 2024-07-05 12:31 | PCM.OP.PRO2 ---
Problems Associated Problem List Diagnoses (1) Atrial fibrillation: Non-invasive Procedural Procedure Information Date of Procedure: 07/05/24 Pre-Procedure Diagnosis: Atrial fibrillation with pacemaker of ventricular rhythm Post-Procedure Diagnosis: Same Procedure Performed:: DC cardioversion reverse logistics analyst: No Procedure Time Out: 12:20 Procedure Start Time: 12:25 Procedure Stop Time: 12:30 Special Medications: Intravenous propofol Description of procedure: Patient was brought to cardiac catheterization lab in the postabsorptive nonsedated state. Patient was seen by Dr. Doss of the critical care division. Informed consent was obtained anterior-posterior pads were applied. 80 mg intravenous propofol was then administered and 200 J of synchronized DC biphasic energy were applied. Patient appeared to convert to sinus rhythm with ventricular pacing. This would be interrogated later on. Procedure findings: Successful DC cardioversion from atrial fibrillation Complications Complications: No
--- NOTE | 2024-07-05 12:57 | CARDIOVERS ---
Cardioversion Cardioversion: CONSCIOUS SEDATION REPORT DATE OF SERVICE: July 05, 2024 BRIEF HISTORY OF PRESENT ILLNESS: The patient is a 63-year-old male who presented to [facility] to undergo an elective outpatient cardioversion due to underlying atrial fibrillation. The patient denied a history of any prior anesthetic complications. He does have a history of tobacco dependency, currently in remission. He denies a history of obstructive sleep apnea. His last surface echocardiogram demonstrated an ejection fraction of approximately 45%. The patient is systemically anticoagulated on Coumadin with an INR today of 2.6. PHYSICAL EXAMINATION: VITAL SIGNS: Reviewed and were acceptable. GENERAL: The patient is a male, in no apparent distress, speaking in full sentences. HEENT: Normocephalic, atraumatic. Mucous membranes are moist and pink. Good mouth opening noted. Trachea is midline. Good neck mobility. CHEST: S1, S2 irregularly irregular. No murmurs, rubs or gallops were noted. LUNGS: Clear to auscultation bilaterally without appreciable wheezes, rales or rhonchi. ABDOMEN: Soft, nontender, nondistended. Positive bowel sounds. EXTREMITIES: There is no clubbing, cyanosis or edema. ASA Class: II DESCRIPTION OF PROCEDURE: After confirmation of informed consent, the patient's anesthesia plan was reviewed in detail. Propofol was chosen. Risks and benefits were reviewed and the patient agreed to proceed. At 1223, the patient was given his first bolus of propofol. In total, throughout the entire procedure, the patient required 80 mg of propofol to achieve an appropriate level of sedation, after which time, he was given a 200 joule synchronized cardioversion by Dr. Mendez at the bedside. This was successful in achieving normal sinus rhythm. The patient was monitored until 1236, at which time he reached his baseline mental status and function. The patient tolerated the procedure well. COMPLICATIONS: None ESTIMATED BLOOD LOSS: None RECOMMENDATIONS: Okay to recover in usual fashion. Procedures Pulmonary Pulmonary Procedures /Diagnostic Testin Con Sedation
== END 2024-07-05 13:30 | disposition home or self-care (01) ==
PROVIDERS: PCP Internal Medicine; Referring Provider Internal Medicine Cardiovascular Disease; Visit Provider Internal Medicine Cardiovascular Disease
DX: I48.91 Unspecified atrial fibrillation (principal); Z95.0 Presence of cardiac pacemaker; I10 Essential (primary) hypertension; Z79.899 Other long term (current) drug therapy; Z79.01 Long term (current) use of anticoagulants; Z87.891 Personal history of nicotine dependence
CPT/HCPCS: 36416; 85610; 92960; 93005

== ENCOUNTER 2024-08-10 08:26 | Outpatient (RCR) | payer OTHER, SELFPAY ==
[2024-08-10 08:38] LABS: INR Fingerstick 2.3; Prothrombin Time Fingerstick 25.1 SEC (11.7-14.9)
== END 2024-08-10 18:00 | disposition home or self-care (01) ==
LOC: LAB 08:26
PROVIDERS: PCP Internal Medicine; Referring Provider Nurse Practitioner Gerontology; Visit Provider Nurse Practitioner Gerontology
DX: I48.91 Unspecified atrial fibrillation (principal); Z79.01 Long term (current) use of anticoagulants
CPT/HCPCS: 36416; 85610

== ENCOUNTER 2024-09-05 09:20 | Outpatient (RCR) | payer OTHER, SELFPAY ==
[2024-09-05 09:36] LABS: INR Fingerstick 2.6; Prothrombin Time Fingerstick 26.8 SEC (11.7-14.9)
== END 2024-09-22 18:00 | disposition home or self-care (01) ==
LOC: LAB 09:20
PROVIDERS: PCP Internal Medicine; Referring Provider Nurse Practitioner Gerontology; Visit Provider Nurse Practitioner Gerontology
DX: Z79.01 Long term (current) use of anticoagulants (principal)
CPT/HCPCS: 36416; 85610

== ENCOUNTER 2024-10-05 08:28 | Outpatient (RCR) | payer OTHER, SELFPAY ==
[2024-10-06 06:25] LABS: INR Fingerstick 2.2; Prothrombin Time Fingerstick 24.1 SEC (11.7-14.9)
== END 2024-10-05 18:00 | disposition home or self-care (01) ==
LOC: LAB 08:28
PROVIDERS: PCP Internal Medicine; Referring Provider Nurse Practitioner Gerontology; Visit Provider Nurse Practitioner Gerontology
DX: I48.11 Longstanding persistent atrial fibrillation (principal); Z79.01 Long term (current) use of anticoagulants
CPT/HCPCS: 36416; 85610

== ENCOUNTER 2024-11-06 09:42 | Outpatient (RCR) | payer OTHER, SELFPAY ==
[2024-11-06 09:56] LABS: INR Fingerstick 2.3; Prothrombin Time Fingerstick 24.8 SEC (11.7-14.9)
== END 2024-11-22 18:00 | disposition home or self-care (01) ==
LOC: LAB 09:42
PROVIDERS: PCP Internal Medicine; Referring Provider Nurse Practitioner Gerontology; Visit Provider Nurse Practitioner Gerontology
DX: I48.91 Unspecified atrial fibrillation (principal); Z79.01 Long term (current) use of anticoagulants
CPT/HCPCS: 36416; 85610

== ENCOUNTER 2024-12-21 08:11 | Outpatient (RCR) | payer OTHER, SELFPAY ==
[2024-12-05 08:02] LABS: Absolute Lymphocyte Count 1.78 X10^3/uL (0.83-4.51); Absolute Neutrophil Count 4.4 X10^3/uL (2.0-7.7); Basophil# 0.05 X10^3/uL; Basophil% 0.7 % (0-1); Eosinophil# 0.13 X10^3/uL; Eosinophils% 1.9 % (0-5); Hemoglobin 13.7 g/dL (13.0-16.5); Lymphocyte # 1.78 X10^3/ul (0.83-4.51); Lymphocyte % 25.5 % (19-41); Mean Corp Hgb Conc 33.4 g/dL (32-36); Mean Corpuscular Hgb 28.5 pg (27.0-32.0); Mean Corpuscular Volume 85.2 fL (80-94); Monocyte# 0.57 X10^3/uL; Monocyte% 8.2 % (0-10); NRBC Flagged by Analyzer 0 % (0-5); Neutrophil # 4.37 X10^3/uL (2.7-7.7); Neutrophil % 62.4 % (47-70); Platelet Count 243 K/mm3 (150-450); RBC Distribution Width CV 13.2 % (11.6-14.6); RBC Distribution Width SD 41.1 fl (35.1-43.9); Red Blood Count 4.81 M/mm3 (4.6-6.2)
[2024-12-05 08:14] LABS: International Normalized Ratio 2.3; Prothrombin Time (Protime)PT. 25.7 SECONDS (11.7-14.9)
[2024-12-05 09:18] LABS: ALB/GLOB Ratio 1.5 RATIO (0.9-2.4); AST(SGOT) 24 U/L (<=37); Alanine Aminotransfer ALT/SGPT 26 U/L (<=46); Albumin, Serum 4.3 g/dL (3.4-4.8); Alkaline Phosphatase 85 U/L (40-129); Anion Gap 13 (5-15); BUN 19 mg/dL (4-19); Carbon Dioxide 23.7 mmol/L (21.0-32.0); Chloride 101 mmol/L (98-108); Cholesterol 182 mg/dL (<=200); Creatinine, Serum 0.92 mg/dL (0.70-1.20); EST Glomerular Filtration Rate 93 (>60); Globulin 2.9 g/dL (2.2-4.2); Glucose 114 mg/dL (70-99); High Density Lipoprotein 29 mg/dL; Low Density Lipoprotein Calc. 80 mg/dL; Magnesium 2.2 mg/dL (1.5-2.2); PSA,Total- Diagnostic 5.51 ng/mL (0.00-4.00); Protein, Total 7.2 g/dL (5.9-8.4); Sodium Level 138 mmol/L (133-145); Total Bilirubin 0.43 mg/dL (0.00-1.30); Triglycerides 363 mg/dL; Very Low Density Lipoprotein 73 mg/dL (5-40); Vitamin D,25 Hydroxy 23.2 ng/mL (30-100); cholesterol:hdl ratio screen 6.25
[2024-12-05 16:12] LABS: Hemoglobin A1c 5.9 % (<=5.6)
[2024-12-13 08:21] LABS: Prothrombin Time Fingerstick 22.5 SEC (11.7-14.9)
[2024-12-21 08:29] LABS: INR Fingerstick 2.3; Prothrombin Time Fingerstick 25.1 SEC (11.7-14.9)
== END 2024-12-21 18:00 | disposition home or self-care (01) ==
LOC: LAB 08:11
PROVIDERS: PCP Internal Medicine; Referring Provider Nurse Practitioner Gerontology; Visit Provider Nurse Practitioner Gerontology
DX: Z79.01 Long term (current) use of anticoagulants (principal); I48.19 Other persistent atrial fibrillation; R97.20 Elevated prostate specific antigen [PSA]; E78.6 Lipoprotein deficiency; I10 Essential (primary) hypertension; I44.2 Atrioventricular block, complete; Z95.0 Presence of cardiac pacemaker; Z13.220 Encounter for screening for lipoid disorders; N40.0 Benign prostatic hyperplasia without lower urinary tract symptoms; E55.9 Vitamin D deficiency, unspecified; R73.9 Hyperglycemia, unspecified
CPT/HCPCS: 36415; 36416; 80053; 80061; 82306; 83036; 83735; 84153; 84443; 85025; 85610

== ENCOUNTER 2025-01-17 09:05 | Outpatient (RCR) | payer OTHER, SELFPAY ==
[2024-12-28 08:20] LABS: INR Fingerstick 2.2; Prothrombin Time Fingerstick 23.5 SEC (11.7-14.9)
[2025-01-04 08:17] LABS: INR Fingerstick 2.3; Prothrombin Time Fingerstick 24.5 SEC (11.7-14.9)
[2025-01-17 09:14] LABS: INR Fingerstick 2.4; Prothrombin Time Fingerstick 25.8 SEC (11.7-14.9)
== END 2025-01-17 18:00 | disposition home or self-care (01) ==
LOC: LAB 09:05
PROVIDERS: PCP Internal Medicine; Referring Provider Nurse Practitioner Gerontology; Visit Provider Nurse Practitioner Gerontology
DX: Z79.01 Long term (current) use of anticoagulants (principal); I48.19 Other persistent atrial fibrillation
CPT/HCPCS: 36416; 85610

== ENCOUNTER 2025-02-08 07:37 | Outpatient (RCR) | payer OTHER, SELFPAY ==
[2025-01-25 06:40] LABS: INR Fingerstick 2.1
[2025-02-01 07:52] LABS: INR Fingerstick 1.8
[2025-02-08 07:56] LABS: INR Fingerstick 2.4
== END 2025-02-22 21:09 | disposition home or self-care (01) ==
LOC: LAB 07:37
PROVIDERS: PCP Internal Medicine; Referring Provider Nurse Practitioner Gerontology; Visit Provider Nurse Practitioner Gerontology
DX: Z79.01 Long term (current) use of anticoagulants (principal); I48.19 Other persistent atrial fibrillation
CPT/HCPCS: 36416; 85610

== ENCOUNTER 2025-03-08 07:35 | Outpatient (RCR) | payer OTHER, SELFPAY ==
[2025-03-01 10:25] LABS: INR Fingerstick 2.3
[2025-03-08 07:52] LABS: INR Fingerstick 2.3
== END 2025-03-08 18:00 | disposition home or self-care (01) ==
LOC: LAB 07:35
PROVIDERS: PCP Internal Medicine; Referring Provider Nurse Practitioner Gerontology; Visit Provider Nurse Practitioner Gerontology
DX: Z79.01 Long term (current) use of anticoagulants (principal); I48.19 Other persistent atrial fibrillation
CPT/HCPCS: 36416; 85610

== ENCOUNTER 2025-03-12 06:59 | Observation (INO) | payer OTHER, SELFPAY ==
--- NOTE | 2025-03-12 06:59 | EKG12_ITS ---
Test Reason : PREOP Blood Pressure : */* mmHG Vent. Rate : 70 BPM Atrial Rate : 234 BPM P-R Int : * ms QRS Dur : 172 ms QT Int : 470 ms P-R-T Axes : * 269 82 degrees QTcB Int : 507 ms Ventricular-paced rhythm Abnormal ECG When compared with ECG of 05-Jul-2024 12:28, Electronic ventricular pacemaker has replaced Wide QRS rhythm Confirmed by SHAHRZAD RAMIREZ, MIKIE ([id number]), news videotape editor BRANDI VIDAL ([id number]) on 03/13/2025 6:13:53 AM Referred By: Mikie Mendez Confirmed By: MIKIE MENDEZ MD
--- NOTE | 2025-03-12 07:06 | PCM.CONS.C ---
Assessment & Plan Assessment/Plan (1) Atrial fibrillation: QUALIFIERS: Atrial fibrillation type: persistent (not longstanding) Qualified Code(s): I48.19 - Other persistent atrial fibrillation PLAN: He does have a history of persistent atrial fibrillation he is currently being admitted for antiarrhythmic loading and DC cardioversion with a view to eventual ablation. (2) History of permanent cardiac pacemaker placement: PLAN: He is status post permanent pacemaker implantation. His pacemaker appears to be functioning appropriately without any issues. (3) Essential hypertension: PLAN: His blood pressure is under good control at this time and I would not suggest we make any changes. HPI Consult Data Date of Consult: 03/12/25 HPI Narrative HPI Narrative: MYRIAM AGUIRRE, is a 64 M who presents to antiarrhythmic drug monitoring and loading. He does have a history of hypertension, complete heart block status post dual-chamber pacemaker implantation in September 2021 with a negative stress test from December 2023. He has a history of atrial fibrillation flutter has been on warfarin and metoprolol and has developed persistent atrial fibrillation. He has had 2 prior cardioversions the most recent of which was in June 2024 with recurrence of his atrial fibrillation flutter. Pacemaker evaluation on December 06, 2024, revealed a functioning dual-chamber [employer] pacemaker with 3.5 years of battery life remaining. The underlying rhythm was 100% atrial fibrillation, with 96% RV pacing. Echocardiogram performed on February 17, 2024, demonstrated an ejection fraction (EF) of 45% with a moderately enlarged left atrium and normal valve function. He was seen by the activities leader here as well as in [place] to discuss options for persistent atrial fibrillation it was felt that he would benefit from an ablation however there has been some cost prohibitive issues. It was therefore felt by the 2 activities leader that he should be admitted and tried on dofetilide and then DC cardioverted in preparation for ablation. Risk benefits alternatives have been explained to him he understands and agrees to proceed. From a cardiac standpoint, patient is doing well. He does not have any chest discomfort/heaviness/tightness. He does not have any worsening symptoms of shortness of breath. He denies any PND. He does not have any orthopnea. He does not have any symptoms of congestive heart failure. He does not have any palpitations that he is aware of. He does not have any lightheadedness or dizziness. He does not have any near-syncope or syncope. He does not have any lower extremity edema. He does not have any symptoms of claudication. [facility] Medical History Skin lesion of left ear Rising PSA level Wears glasses Former smoker Numbness and tingling of both feet History of pacemaker Cardiology follow-up encounter Former tobacco use Obesity Complete heart block Essential hypertension Home Medications ?Medication ?Instructions ?Recorded ?Last Taken ?Type cinnamon bark 500 mg capsule 500 mg PO DAILY 09/21/22 03/11/25 History (Cinnamon) turmeric 400 mg capsule 400 mg PO DAILY 09/21/22 Unknown History vitamin B complex 1 tab PO DAILY 12/10/22 Unknown History zinc acetate 50 mg (zinc) capsule 50 mg PO DAILY 12/10/22 03/12/25 History alpha lipoic acid 600 mg-biotin 1 tab PO DAILY 06/08/24 03/11/25 History 450 mcg tablet,extended release warfarin 4 mg tablet 4 mg PO DAILY 07/04/24 03/11/25 History hydralazine 25 mg tablet 25 mg PO TID #270 tabs 08/22/24 03/11/25 Rx latanoprost 0.005 % eye drops 1 drp ophthalmic (eye) QHS 12/07/24 03/11/25 History losartan 100 1 tab PO DAILY #90 tabs 02/19/25 Unknown Rx mg-hydrochlorothiazide 25 mg tablet metoprolol succinate 50 mg 50 mg PO DAILY #90 tabs 02/19/25 Unknown Rx tablet,extended release 24 hr (Toprol XL) amlodipine 10 mg tablet 10 mg PO DAILY #90 tabs 03/01/25 03/11/25 Rx Allergy/AdvReac Type Severity Reaction Status Date / Time poison jose extract Allergy Mild Rash Verified 12/14/24 08:41 Family History Father Cancer Heart disease Hypertension Mother Diabetes Heart disease Grandmother Breast cancer Surgical History History of local excision of skin lesion H/O umbilical hernia repair History of permanent cardiac pacemaker placement (10/17/21) History of herniorrhaphy bilateral shoulder surgery H/O lateral meniscus repair of right knee Social History household members: spouse Smoking Status: Former smoker how long ago did patient quit smoking: Quit cigarette tobacco 1997, prior 1 ppd since teenager. alcohol intake: current alcohol intake frequency: a few times a week substance use type: does not use ROS Constitutional Constitutional: Denies fever(s) or weight loss Eyes Eyes: Reports systems reviewed and no addt'l complaints, except as documented ENT HEENT: Reports systems reviewed and no addt'l complaints, except as documented Cardiovascular Cardiovascular: Denies chest pain at rest, chest pain with activity, dyspnea at rest, dyspnea on exertion, edema, palpitations or paroxysmal nocturnal dyspnea Respiratory/Chest Respiratory/Chest: Denies dyspnea on exertion, productive cough, shortness of breath at rest or shortness of breath with exertion Gastrointestinal Gastrointestinal: Denies change in bowel habits, nausea, vomiting or weight changes Genitourinary Genitourinary: Denies difficulty urinating Musculoskeletal Musculoskeletal: Denies joint stiffness or muscle weakness Integumentary Integumentary: Denies lesions Neurologic Neurologic: Denies dizziness or syncope Psychiatric Psychiatric: Denies anxiety Endocrine Endocrinology: Denies excessive sweating or fatigue Hematologic/Lymphatic Hematologic/Lymphatic: Denies anemia Allergic/Immunologic Allergic/Immunologic: Denies seasonal rhinorrhea Physical Exam Const alert, oriented x3 and no apparent distress General Appearance: cooperative HEENT hearing grossly normal bilaterally Head and Scalp: atraumatic Eyes EOMs intact bilaterally Neck General: normal visual inspection Chest inspection of chest normal and palpation of chest normal Resp normal respiratory effort Auscultation: clear to auscultation bilaterally Cardio regular rate, regular rhythm, S1 normal heart sound and S2 normal heart sound Jugular Venous Distention: JVD GI normal to inspection, nondistended, normoactive bowel sounds Extremity normal capillary refill and no pedal edema Peripheral Pulses: Yes pulses 2+ throughout and femoral pulses present Skin no rashes or lesions noted Neuro oriented x3 and CN's II-XII intact bilaterally Psych Appearance: grossly normal and appropriate Lab / Micro Data 03/12/25 08:15 03/12/25 08:15 Cardiology Labs/Tests Rhythm: EKG: ECHO: Stress Test: Cardiac Cath: PCI: CT Surgery: Holter monitor: EPS: PPM: CXR: Chest CT Scan: ERNESTINA Risk Score for UA/STEMI Assesmment (YES = 1) Risk Stratification Applicable: No
[2025-03-12 07:46] VITALS: BMI 38.7
[2025-03-12 08:18] VITALS: BP 154/89; PULSE 70; RESP 16; TEMP 36.4; O2SAT 94
[2025-03-12 08:30] LABS: Hematocrit 40.7 % (40-54); Hemoglobin 13.7 g/dL (13.0-16.5); Mean Corp Hgb Conc 33.7 g/dL (32-36); Mean Corpuscular Volume 84.8 fL (80-94); Mean Platelet Vol. 9.2 fl (6.2-12.0); Platelet Count 260 K/mm3 (150-450); RBC Distribution Width CV 13.2 % (11.6-14.6); RBC Distribution Width SD 41.0 fl (35.1-43.9); Red Blood Count 4.80 M/mm3 (4.6-6.2); White Blood Count 8.9 K/mm3 (4.4-11.0)
[2025-03-12 08:44] LABS: Prothrombin Time (Protime)PT. 26.0 SECONDS (11.7-14.9)
[2025-03-12 09:13] LABS: AST(SGOT) 21 U/L (<=37); Alanine Aminotransfer ALT/SGPT 29 U/L (<=46); Albumin, Serum 4.4 g/dL (3.4-4.8); Alkaline Phosphatase 86 U/L (40-129); Anion Gap 12 (5-15); BUN 16 mg/dL (4-19); BUN/Creat Ratio 16.7 RATIO (10-20); Calcium,Total 9.2 mg/dL (7.6-11.0); Carbon Dioxide 25.6 mmol/L (21.0-32.0); Chloride 100 mmol/L (98-108); Estimated Creatinine Clearance 112.38 ml/min (50-250); Globulin 3.0 g/dL (2.2-4.2); Glucose 110 mg/dL (70-99); Magnesium 2.2 mg/dL (1.5-2.2); Potassium 4.1 mmol/L (3.3-5.1)
[2025-03-12 09:40] VITALS: PULSE 70
[2025-03-12] MEDS: Metoprolol(XL)Succ 50 MG Tablet PO (09:40)
--- NOTE | 2025-03-12 11:40 | EKG12_ITS ---
Test Reason : CHEST PAIN Blood Pressure : */* mmHG Vent. Rate : 70 BPM Atrial Rate : 77 BPM P-R Int : * ms QRS Dur : 172 ms QT Int : 496 ms P-R-T Axes : * -85 83 degrees QTcB Int : 535 ms Ventricular-paced rhythm Abnormal ECG When compared with ECG of 12-Mar-2025 11:57, MANUAL COMPARISON REQUIRED DATA IS UNCONFIRMED Confirmed by SHAHRZAD RAMIREZ, MIKIE ([id number]), film or videotape editor VINITA LSOAN ([id number]) on 03/13/2025 8:51:49 AM Referred By: Mikie Mendez Confirmed By: MIKIE MENDEZ MD
[2025-03-12 14:56] VITALS: BP 113/86; PULSE 70; RESP 18; TEMP 36.3; O2SAT 95
[2025-03-12 14:58] VITALS: PULSE 70
[2025-03-12 20:50] VITALS: BP 142/88; PULSE 70; RESP 16; TEMP 36.1; O2SAT 98
[2025-03-12 20:52] VITALS: BP 142/88; PULSE 70
[2025-03-12] MEDS: Latanoprost 0.005% 1 Bottle 1 DRP OPHTHALMIC (20:54)
[2025-03-12] MEDS: 0.9% Saline Lock 10 ML Syringe IV (20:55)
--- NOTE | 2025-03-12 22:52 | EKG12_ITS ---
Test Reason : Blood Pressure : */* mmHG Vent. Rate : 70 BPM Atrial Rate : 105 BPM P-R Int : * ms QRS Dur : 174 ms QT Int : 490 ms P-R-T Axes : * 270 75 degrees QTcB Int : 529 ms Sinus tachycardia with complete heart block and Ventricular-paced rhythm Abnormal ECG When compared with ECG of 12-Mar-2025 09:25, MANUAL COMPARISON REQUIRED DATA IS UNCONFIRMED Confirmed by SHAHRZAD RAMIREZ, MIKIE ([id number]), multimedia editor BRANDI VIDAL ([id number]) on 03/13/2025 6:13:43 AM Referred By: Mikie Mendez Confirmed By: MIKIE MENDEZ MD
[2025-03-13] VITALS (9 sets, daily range): BP systolic 115–148; BP diastolic 72–86; PULSE 65–71; RESP 14–18; TEMP 36.3–36.8; O2SAT 96–98
[2025-03-13] MEDS: Metoprolol(XL)Succ 50 MG Tablet PO (06:53)
--- NOTE | 2025-03-13 09:11 | CASEMGMT ---
Dx: Afib, medication loading LACE: 1 6-Clicks: 24 Medical record reviewed and patient evaluated for identification of discharge planning needs. Based on this review, at this time criteria are not present to indicate a need for discharge planning. Will remain available to assist with discharge planning needs as identified or requested.
--- NOTE | 2025-03-13 10:15 | EKG12_ITS ---
Test Reason : post tikosyn Blood Pressure : */* mmHG Vent. Rate : 70 BPM Atrial Rate : 68 BPM P-R Int : * ms QRS Dur : 170 ms QT Int : 462 ms P-R-T Axes : * -83 80 degrees QTcB Int : 498 ms Ventricular-paced rhythm Abnormal ECG Confirmed by SHAHRZAD RAMIREZ, MIKIE ([id number]), editor in chief newspaper BRANDI VIDAL ([id number]) on 03/15/2025 6:31:29 AM Referred By: Mikie Mnedez Confirmed By: MIKIE MENDEZ MD
--- NOTE | 2025-03-13 17:28 | EKG12_ITS ---
Test Reason : meds Blood Pressure : */* mmHG Vent. Rate : 70 BPM Atrial Rate : 84 BPM P-R Int : * ms QRS Dur : 174 ms QT Int : 502 ms P-R-T Axes : * -87 78 degrees QTcB Int : 542 ms Ventricular-paced rhythm Abnormal ECG When compared with ECG of 13-Mar-2025 17:36, MANUAL COMPARISON REQUIRED DATA IS UNCONFIRMED Confirmed by SHAHRZAD RAMIREZ, MIKIE ([id number]), television news video editor BRANDI VIDAL ([id number]) on 03/15/2025 6:32:02 AM Referred By: Mikie Mendez Confirmed By: MIKIE MENDEZ MD
[2025-03-13] MEDS: Latanoprost 0.005% 1 Bottle 1 DRP OPHTHALMIC (20:36)
[2025-03-13] MEDS: 0.9% Saline Lock 10 ML Syringe IV (20:37)
--- NOTE | 2025-03-13 22:36 | EKG12_ITS ---
Test Reason : Blood Pressure : */* mmHG Vent. Rate : 70 BPM Atrial Rate : 55 BPM P-R Int : * ms QRS Dur : 168 ms QT Int : 460 ms P-R-T Axes : * 264 69 degrees QTcB Int : 496 ms Ventricular-paced rhythm Abnormal ECG When compared with ECG of 13-Mar-2025 10:29, MANUAL COMPARISON REQUIRED DATA IS UNCONFIRMED Confirmed by SHAHRZAD RAMIREZ, MIKIE ([id number]), manager editorial BRANDI VIDAL ([id number]) on 03/15/2025 6:32:10 AM Referred By: Mikie Mendez Confirmed By: MIKIE MENDEZ MD
[2025-03-14] VITALS (8 sets, daily range): BP systolic 128–137; BP diastolic 72–102; PULSE 60–70; RESP 16–18; TEMP 36.3–36.7; O2SAT 94–97
[2025-03-14] MEDS: Metoprolol(XL)Succ 50 MG Tablet PO (06:50)
--- NOTE | 2025-03-14 08:51 | EKG12_ITS ---
Test Reason : tykasin Blood Pressure : */* mmHG Vent. Rate : 70 BPM Atrial Rate : 73 BPM P-R Int : * ms QRS Dur : 174 ms QT Int : 482 ms P-R-T Axes : * -82 73 degrees QTcB Int : 520 ms Ventricular-paced rhythm Abnormal ECG When compared with ECG of 13-Mar-2025 22:49, MANUAL COMPARISON REQUIRED DATA IS UNCONFIRMED Confirmed by MARY ELLEN RAMIREZ, CHUCKY ([id number]), technical editor BRANDI VIDAL ([id number]) on 03/15/2025 1:37:45 PM Referred By: Mikie Mendez Confirmed By: CHUCKY HYDE MD
[2025-03-14 09:36] LABS: Prothrombin Time (Protime)PT. 24.5 SECONDS (11.7-14.9)
--- NOTE | 2025-03-14 12:54 | PCM.OP.PRO2 ---
Non-invasive Procedural Procedure Information Date of Procedure: 03/14/25 Pre-Procedure Diagnosis: Atrial fibrillation Post-Procedure Diagnosis: Same Procedure Performed:: DC cardioversion Procedure Time Out: 12:45 Procedure Start Time: 12:47 Procedure Stop Time: 12:50 Special Medications: Intravenous propofol 60 mg Description of procedure: Patient was brought to cardiac catheterization lab and was seen by Dr. Doss of the critical care division. Informed consent was obtained. Anterior posterior pads were applied. The patient was administered 60 mg intravenous propofol. 300 J of synchronized DC biphasic cardioversion energy were applied with prompt reversal to AV sequential pacing. Patient tolerated the procedure well. Procedure findings: Successful DC cardioversion from atrial fibrillation to AV sequential pacing Pacemaker will be interrogated Follow-up as per office protocol
--- NOTE | 2025-03-14 13:09 | PRO.PCM_ITS ---
Procedures Pulmonary Pulmonary Procedures /Diagnostic Testin Con Sedation Non-invasive Procedural Procedure Information Date of Procedure: 03/14/25 Description of procedure: CONSCIOUS SEDATION REPORT DATE OF SERVICE: March 14, 2025 BRIEF HISTORY OF PRESENT ILLNESS: The patient is a 64-year-old male, currently admitted to [facility], after presenting with atrial fibrillation. The patient did undergo a successful cardioversion in June 2024, during which time, propofol was utilized for sedation. The patient indicated that he has an upcoming polysomnogram scheduled in March over concerns for underlying sleep apnea. The patient denied any prior anesthetic complications. The patient is systemically anticoagulated on Coumadin with a therapeutic INR of 2.2. His last surface echocardiogram demonstrated an ejection fraction of 45%. PHYSICAL EXAMINATION: VITAL SIGNS: Reviewed and were acceptable. GENERAL: The patient is a male, in no apparent distress, speaking in full sentences. HEENT: Normocephalic, atraumatic. Mucous membranes are moist and pink. Good mouth opening noted. Trachea is midline. Good neck mobility. CHEST: S1, S2 irregularly irregular. No murmurs, rubs or gallops were noted. LUNGS: Clear to auscultation bilaterally without appreciable wheezes, rales or rhonchi. ABDOMEN: Soft, nontender, nondistended. Positive bowel sounds. EXTREMITIES: There is no clubbing, cyanosis or edema. ASA Class: II DESCRIPTION OF PROCEDURE: After confirmation of informed consent, the patient's anesthesia plan was reviewed in detail. Propofol was chosen. Risks and benefits were reviewed and the patient agreed to proceed. At 1246, the patient was given 60 mg of propofol. The patient achieved an appropriate level of sedation and was given a 300 joule synchronized cardioversion by Dr. Mendez at the bedside. This was successful in achieving normal sinus rhythm. The patient was monitored until 1300, at which time he reached his baseline mental status and function. The patient tolerated the procedure well. COMPLICATIONS: None ESTIMATED BLOOD LOSS: None RECOMMENDATIONS: Okay to recover in usual fashion.
--- NOTE | 2025-03-14 15:17 | PCM.PN.CARD ---
Subjective Subjective Patient seen and evaluated. Underwent DC cardioversion today successfully Objective Data Vital Signs: Vital Signs Temp Pulse Resp BP Pulse Ox O2 Del Method 97.7 F L 60 16 128/72 H 96 Room Air 03/14/25 14:00 03/14/25 14:05 03/14/25 14:00 03/14/25 14:05 03/14/25 14:00 03/14/25 14:00 Oxygen Delivery Method Room Air Weight: 293 lb 3.437 oz Body Mass Index (BMI) 38.7 Intake & Output: Intake and Output for Last 24 Hours 03/12/25 03/13/25 03/14/25 23:59 23:59 23:59 Intake Total 500 / 500 200 / 200 0 / 0 Balance 500 / 500 200 / 200 0 / 0 Lab / Micro Data 03/12/25 08:15 03/12/25 08:15 Labs: Laboratory Results - last 24 hr 03/14/25 09:14: PT 24.5 H, INR 2.2 Cardiology Labs/Tests 03/14/25 09:14: PT 24.5 H, INR 2.2 Rhythm: EKG: ECHO: Stress Test: Cardiac Cath: PCI: CT Surgery: Holter monitor: EPS: PPM: CXR: Chest CT Scan: Physical Exam Const alert, oriented x3 and no apparent distress General Appearance: cooperative HEENT hearing grossly normal bilaterally Head and Scalp: atraumatic Eyes EOMs intact bilaterally Neck General: normal visual inspection Chest inspection of chest normal and palpation of chest normal Resp normal respiratory effort Auscultation: clear to auscultation bilaterally Cardio regular rate, regular rhythm, S1 normal heart sound and S2 normal heart sound Jugular Venous Distention: JVD GI normal to inspection, nondistended, normoactive bowel sounds Extremity normal capillary refill and no pedal edema Peripheral Pulses: Yes pulses 2+ throughout and femoral pulses present Skin no rashes or lesions noted Neuro oriented x3 and CN's II-XII intact bilaterally Psych Appearance: grossly normal and appropriate Assessment & Plan Assessment/Plan (1) Atrial fibrillation: QUALIFIERS: Atrial fibrillation type: persistent (not longstanding) Qualified Code(s): I48.19 - Other persistent atrial fibrillation PLAN: He does have a history of persistent atrial fibrillation he is currently being admitted for antiarrhythmic loading and underwent a DC cardioversion successfully. It was checked afterwards he was noted to be in AV sequential paced rhythm he will continue on anticoagulation as well as the Tikosyn. (2) History of permanent cardiac pacemaker placement: PLAN: He is status post permanent pacemaker implantation. His pacemaker appears to be functioning appropriately without any issues. (3) Essential hypertension: PLAN: His blood pressure is under good control at this time and I would not suggest we make any changes.
--- NOTE | 2025-03-14 15:21 | DCINST_ITS ---
Discharge Instructions DC O2, CPAP, BIPAP needs Home O2 Discharge instructions: No Dressing / Incision Discharge Activity: Return to Normal Activity Follow Up Care When: Heart group will call with appointment. Test Results: Test results from this visit will be discussed in further detail at your follow- up appointment, if applicable. Discharge Plan Admission Admit Date/Time: 03/12/25 11:02 Attending Provider: Mikie Mendez Primary Care Provider: Anne Blackman Discharge Orders/Prescriptions Prescriptions: New dofetilide 250 mcg Capsule 250 mcg PO Q12H Qty: 180 3RF losartan 100 mg Tablet 100 mg PO DAILY Qty: 90 3RF Continued zinc acetate 50 mg (zinc) capsule 50 mg PO DAILY vitamin B complex Tablet 1 tab PO DAILY alpha lipoic acid-biotin 600 mg- 450 mcg tablet extended release 1 tab PO DAILY latanoprost 0.005 % drops 1 drp ophthalmic (eye) QHS warfarin 4 mg tablet 4 mg PO DAILY Protocol: Dose Management Condition: Wednesday Dose/Route: 6 mg Instruction: 1.5 x 4 mg tablets Condition: Wednesday Dose/Route: 4 mg Instruction: 1 x 4 mg tablet Condition: Wednesday Dose/Route: 4 mg Instruction: 1 x 4 mg tablet Condition: Wednesday Dose/Route: 4 mg Instruction: 1 x 4 mg tablet Condition: Dose/Route: 6 mg Instruction: 1.5 x 4 mg tablets Condition: Wednesday Dose/Route: 6 mg Instruction: 1.5 x 4 mg tablets Condition: Wednesday Dose/Route: 6 mg Instruction: 1.5 x 4 mg tablets Protocol Text: Adjustment Start Date: 03/08/25 INR Value: 2.3 INR Date: 03/08/25 Recheck Date: 03/15/25 Rx Instructions: 4 mg orally; One tab (4mg) [id number] and 1.5 tabs (6mg) all other days of the week, or as directed: please give extra tablets as dose changes frequently turmeric 400 mg capsule 400 mg PO DAILY cinnamon bark [Cinnamon] 500 mg capsule 500 mg PO DAILY hydralazine 25 mg tablet 25 mg PO TID Qty: 270 3RF metoprolol succinate [Toprol XL] 50 mg tablet extended release 24 hr 50 mg PO DAILY Qty: 90 3RF amlodipine 10 mg tablet 10 mg PO DAILY Qty: 90 3RF Discontinued losartan-hydrochlorothiazide 100-25 mg tablet 1 tab PO DAILY Qty: 90 3RF Patient Comments: TAKE 1 TABLET BY MOUTHLONCE DAILY Referrals / Follow Up: Anne Blackman MD [Primary Care Provider] - Disposition Disposition (needs filled in before D/C Order can be placed): Home, Self Care
== END 2025-03-14 16:10 | disposition home or self-care (01) ==
PROVIDERS: Admitting Provider Internal Medicine Cardiovascular Disease; PCP Internal Medicine; Referring Provider Internal Medicine Cardiovascular Disease; Visit Provider Internal Medicine Cardiovascular Disease
DX: I48.19 Other persistent atrial fibrillation (principal); I48.92 Unspecified atrial flutter; I10 Essential (primary) hypertension; Z82.49 Family history of ischemic heart disease and other diseases of the circulatory system; Z87.891 Personal history of nicotine dependence; Z95.0 Presence of cardiac pacemaker; Z79.899 Other long term (current) drug therapy; Z79.01 Long term (current) use of anticoagulants
CPT/HCPCS: 36415; 80053; 83735; 85027; 85610; 92960; 93005; 99221; A4216; G0378

== ENCOUNTER 2025-03-23 08:05 | Outpatient (CLI) | payer OTHER, SELFPAY ==
[2025-03-23 11:24] LABS: Anion Gap 13 (5-15); BUN 15 mg/dL (4-19); BUN/Creat Ratio 15.5 RATIO (10-20); Calcium,Total 9.4 mg/dL (7.6-11.0); Carbon Dioxide 25.2 mmol/L (21.0-32.0); Chloride 100 mmol/L (98-108); Glucose 129 mg/dL (70-99); Magnesium 2.2 mg/dL (1.5-2.2); Potassium 4.2 mmol/L (3.3-5.1)
== END 2025-03-23 23:59 | disposition home or self-care (01) ==
LOC: LAB 08:06
PROVIDERS: PCP Internal Medicine; Referring Provider Physician Assistant Medical; Visit Provider Physician Assistant Medical
DX: I48.19 Other persistent atrial fibrillation (principal); Z79.899 Other long term (current) drug therapy
CPT/HCPCS: 80048; 83735

== ENCOUNTER → 2025-04-27 | Outpatient (CLI) | payer OTHER, SELFPAY ==
--- NOTE | 2025-04-27 10:44 | ECHOCS_ITS ---
Reason For Study Reason For Study: DCMP Procedure This was a 2D Doppler, Color Flow transthoracic echocardiogram. The study was technically difficult. Contrast injection was performed. Exam performed in department. Left Ventricle Normal LV size. Moderate concentric left ventricular hypertrophy. The left ventricular ejection fraction is 40 %. [place] : Severely Hypokinetic. There is mild to moderate global hypokinesis of the left ventricle. Right Ventricle Normal RV size. ICD or pacer leads identified within the right ventricle. Normal systolic function. Atria The left atrium is mildly enlarged. Normal right atrium. Mitral Valve Bileaflet diffuse mitral valve thickening. Tricuspid Valve Normal tricuspid valve. Mild-Moderate (1-2+) tricuspid valve insufficiency. Pulmonary artery systolic pressure is 34 mmHg. Pulmonic Valve Normal pulmonic valve. Great Vessels Normal aortic root. The pulmonary artery is normal size. Inferior vena cava collapse with respiration. Pericardium/Pleural No pericardial effusion. Medication 22 gauge I.V. with prn adaptor inserted into right arm. Diluted definity 2ml given slow IV push to enhance endocardial definition. MMode/2D Measurements & Calculations LVIDd: 5.0 cm IVSd: 1.3 cm Ao root diam: 3.9 cm LVIDs: 4.0 cm LVPWd: 1.6 cm FS: 20.0 % LAV(MOD-bp): 70.8 ml LVAd ap4: 45.1 cm2 SV(MOD-sp4): 58.3 ml LAV(MOD-bp) Indexed: 28.0 ml/m2 LVLd ap4: 9.1 cm SI(MOD-sp4): 23.0 ml/m2 LAV(MOD-sp2): 56.6 ml EDV(MOD-sp4): 183.4 ml LAV(MOD-sp4): 76.4 ml EDV(sp4-el): 189.1 ml LVAs ap4: 36.3 cm2 LVLs ap4: 8.5 cm ESV(MOD-sp4): 125.1 ml ESV(sp4-el): 130.7 ml EF(MOD-sp4): 31.8 % EF(sp4-el): 30.9 % SV(sp4-el): 58.4 ml LA A4 area: 23.7 cm2 LA dimension(2D): 4.2 cm RA A4 area: 12.0 cm2 Time Measurements MV dec time: 0.12 sec Doppler Measurements & Calculations MV E max cole: 48.4 cm/sec Lat Peak E' Cole: 4.3 cm/sec Med Peak E' Cole: 6.3 cm/sec MV A max cole: 90.9 cm/sec E/E' lat: 11.4 E/E' med: 7.7 MV E/A: 0.53 MV V2 max: 91.6 cm/sec Ao V2 max: 131.1 cm/sec MV max P.4 mmHg MV dec slope: 408.0 cm/sec2 Ao max P.9 mmHg MV V2 mean: 59.0 cm/sec Ao V2 mean: 94.5 cm/sec MV mean P.6 mmHg Ao mean P.0 mmHg MV V2 VTI: 24.7 cm Ao V2 VTI: 29.7 cm AV (velocity ratio): 0.86 LV V1 max: 121.1 cm/sec PA V2 max: 109.1 cm/sec TR max cole: 273.1 cm/sec LV V1 max P.9 mmHg PA V2 mean: 72.6 cm/sec TR max P.8 mmHg LV V1 mean P.3 mmHg LV V1 mean: 82.8 cm/sec LV V1 VTI: 25.6 cm ECHO/Echo Complete W/ Contrast Interpretation Summary Normal LV size. Moderate concentric left ventricular hypertrophy. The left ventricular ejection fraction is 40 %. [place] : Severely Hypokinetic. There is mild to moderate global hypokinesis of the left ventricle. Contrast injection was performed. Ordering Physician: Svetlana Mendez Referring Physician: Svetlana Mendez Performed By: Cielo Walker RCS
== END | disposition home or self-care (01) ==
LOC: CVS 10:43
PROVIDERS: PCP Internal Medicine; Referring Provider Physician Assistant Medical; Visit Provider Physician Assistant Medical
DX: I51.9 Heart disease, unspecified (principal)
CPT/HCPCS: 93306; Q9957; A4216; C8929

== ENCOUNTER 2025-05-08 10:40 | Outpatient (RCR) | payer OTHER, SELFPAY ==
[2025-05-08 11:01] LABS: INR Fingerstick 2.2
== END 2025-05-08 18:00 | disposition home or self-care (01) ==
LOC: LAB 10:40
PROVIDERS: PCP Internal Medicine; Referring Provider Nurse Practitioner Gerontology; Visit Provider Nurse Practitioner Gerontology
DX: Z79.01 Long term (current) use of anticoagulants (principal); I48.19 Other persistent atrial fibrillation
CPT/HCPCS: 36416; 85610

== ENCOUNTER 2025-06-22 08:14 | Outpatient (RCR) | payer OTHER, SELFPAY ==
[2025-06-04 09:44] LABS: Prothrombin Time (Protime)PT. 21.9 SECONDS (11.7-14.9)
[2025-06-04 10:01] LABS: PSA,Total- Diagnostic 4.56 ng/mL (0.00-4.00)
[2025-06-04 10:09] LABS: AST(SGOT) 19 U/L (<=37); Alanine Aminotransfer ALT/SGPT 27 U/L (<=46); Albumin, Serum 4.5 g/dL (3.4-4.8); Alkaline Phosphatase 77 U/L (40-129); Anion Gap 10 (5-15); BUN 15 mg/dL (4-19); BUN/Creat Ratio 16.8 RATIO (10-20); Calcium,Total 9.1 mg/dL (7.6-11.0); Carbon Dioxide 25.6 mmol/L (21.0-32.0); Chloride 101 mmol/L (98-108); Cholesterol 195 mg/dL (<=200); Globulin 2.8 g/dL (2.2-4.2); Glucose 110 mg/dL (70-99); Low Density Lipoprotein Calc. 104 mg/dL; Magnesium 2.1 mg/dL (1.5-2.2); Potassium 4.3 mmol/L (3.3-5.1); Triglycerides 357 mg/dL; Very Low Density Lipoprotein 71 mg/dL (5-40); Vitamin D,25 Hydroxy 25.8 ng/mL (30-100); cholesterol:hdl ratio screen 6.48
[2025-06-15 11:03] LABS: INR Fingerstick 1.9
[2025-06-22 08:26] LABS: INR Fingerstick 2.3
== END 2025-06-23 18:00 | disposition home or self-care (01) ==
LOC: LAB 08:14
PROVIDERS: Urology; PCP Internal Medicine; Referring Provider Nurse Practitioner Gerontology; Visit Provider Nurse Practitioner Gerontology
DX: E78.6 Lipoprotein deficiency (principal); Z79.01 Long term (current) use of anticoagulants; I10 Essential (primary) hypertension; E66.9 Obesity, unspecified; Z82.49 Family history of ischemic heart disease and other diseases of the circulatory system; Z13.220 Encounter for screening for lipoid disorders; R73.9 Hyperglycemia, unspecified; E55.9 Vitamin D deficiency, unspecified; R97.20 Elevated prostate specific antigen [PSA]
CPT/HCPCS: 36415; 36416; 80053; 80061; 82306; 83036; 83735; 84153; 84443; 85610

== ENCOUNTER 2025-07-02 08:41 | Outpatient (RCR) | payer OTHER, SELFPAY ==
[2025-06-29 07:08] LABS: INR Fingerstick 2.1
[2025-07-02 08:46] LABS: INR Fingerstick 2.3
== END 2025-07-02 18:00 | disposition home or self-care (01) ==
LOC: LAB 08:41
PROVIDERS: PCP Internal Medicine; Referring Provider Nurse Practitioner Gerontology; Visit Provider Nurse Practitioner Gerontology
DX: Z79.01 Long term (current) use of anticoagulants (principal); I48.19 Other persistent atrial fibrillation
CPT/HCPCS: 36416; 85610